=== PATIENT | male | born 1950 | race Caucasian/White ===

== ENCOUNTER 2019-11-17 09:50 | Inpatient (IN) | payer MEDICARE, OTHER ==
[~2019-11-17] VITALS: Ht 185.4 cm; Wt 86.3 kg
--- OUTSIDE RECORDS SUMMARY | 2019-11-17 09:53 | XMS REPORT ---
Author Organization Unknown Address [address] [place] [address] Phone [phone] Care Team Providers Care Supervisor Statement Clerks Name Role Phone JESÚS MANZO MD (OPHTHALMOLOGY) [phone] Allergies Code Code System Name Reaction Severity Status Onset No Known Allergies Deactivated NKDA Medications Name Status Start Date Stop Date Aspirin Low Dose 81 mg tablet,delayed re lease Take 1 tablet every day by oral route. Active Not available azithromycin 250 mg tablet TAKE 2 TABLETS (500 MG) BY ORAL ROUTE ONCE DAILY FOR 1 DAY THEN 1 TABLET (250 MG) BY ORAL ROUTE ONCE DAILY FOR 4 DAYS Active Not available azithromycin 500 mg tablet Take 1 tablet every day by oral route for 3 days. Completed 10/08/2016 azithromycin 500 mg tabs Completed 017 boostrix 5-2.5-18.5 susp Completed 017 Centrum Silver Active Not available crestor 20 mg tabs Completed 06/13/2016 D3-2000 2,000 unit capsule Take by oral route. Active Not available Depo-Medrol 80 mg/mL suspension for inje ction 1 cc injected deep IM, once, as a single dose Completed 09/10/2016 diclofenac 1 % topical gel apply 1 inch to affected area 4 times a day Active Not available diclofenac sodium 1 % gel Completed 2017 hydrocodone 10 mg-acetaminophen 325 mg t ablet 2 tablets q 8 hrs x 30 days Active Not availab le hydrocodone/acetaminophen 10-325 mg tabs Completed 10/14/2017 hydroxyzine HCl 10 mg tablet TAKE 1 TO 2 TABLETS BY MOUTH EVERY 8 HOURS NEEDED Active Not available Kenalog 40 mg/mL suspension for injectio n 1 ml injected into the Carpal ligament, using sterile technique Completed 01/03/2017 lidocaine 10 mg/mL (1 %) injection solut ion 1 ml used to infiltrate the area of the R carpal tunnel area Completed 01/03/2017 lorazepam 2 mg tablet Take 1 tablet twice a day by oral route for 30 days. Active Not available lorazepam 2 mg tabs Completed 10/14/2017 Medrol (Juan Diego) 4 mg tablets in a dose pack take as directed on the pack; do not skip any doses; take all tablets Completed 01/31/2017 metformin 500 mg tablet TAKE 2 TABLETS BY MOUTH TWICE DAILY DIRECTED Active Not available metformin hcl 500 mg tabs Completed 2016 methylprednisolone dose pack 4 mg tbpk Completed 03/01/2017 metoprolol succinate ER 50 mg tablet,ext ended release 24 hr Take 1 tablet every day by oral route for 90 days. Active Not available metoprolol succinate er 50 mg tb24 Completed 10/14/2017 naproxen 500 mg tablet TAKE 1 TABLET BY MOUTH TWICE DAILY Active Not available naproxen 500 mg tabs Completed 10/14/2017 pantoprazole 40 mg tablet,delayed releas e Take 1 tablet every day by oral route for 90 days. Active Not available pantoprazole sodium 40 mg tbec Completed 0 10/14/2017 peg-3350/nacl/na bicarbonate/kcl 420 gm solr Completed 06/19/2017 polyethylene glycol 3350 powd Completed 1 08/20/2016 promethazine hcl 25 mg tabs Completed 03/31 rosuvastatin 20 mg tablet Take 1 tablet every day by oral route at bedtime for 90 days. Completed 06/19/2017 rosuvastatin 5 mg tablet Take 1 tablet every day by oral route for 90 days. Active Not available rosuvastatin calcium 20 mg tabs Completed 03/01/2017 rosuvastatin calcium 5 mg tabs Completed 0 08/16/2017 tamsulosin 0.4 mg capsule TAKE 1 CAPSULE BY MOUTH EVERY DAY Active Not a vailable tamsulosin hcl 0.4 mg caps Completed 08/16 testosterone cypionate 200 mg/mL intramuscular oil Completed 06/19/2017 testosterone cypionate 200 mg/ml soln inject 1ml every 2 weeks Active Not available triamcinolone acetonide 0.1 % crea Completed 10/08/2016 triamcinolone acetonide 0.1 % dental pas te apple a small pea-sized amount directy to lesion on the gum Completed 11/07/2016 triamcinolone acetonide 0.1 % pste Completed 10/08/2016 triamcinolone acetonide 0.1 % topical cr eam APPLY A THIN LAYER TO THE AFFECTED AREA(S) BY TOPICAL ROUTE 2 TIMES PER DAY Completed 01/03/2017 Notes: Also takes Excipial (for bruising ) supplement twice a day Problems Name Status Onset Date Source Lactose Intolerance Active 04/08/2015 History 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 History Hypertensive Heart Disease Active 04/08/2015 Histo ry Old Myocardial Infarction Active 04/08/2015 Histor y Hip Pain Active 04/08/2015 History Low Back Pain Active 04/08/2015 History History of Placement of Stent for Coronary Artery Disease Active 04/08/2015 History Antiplatelet Agent Therapy Active 04/08/2015 Histo ry Long-term Drug Therapy Active 04/08/2015 History Clinical Finding Unknown 04/08/2015 History Long-term Current Use of Drug Therapy Active 04/08/2015 History Patient Post Percutaneous Transluminal Coronary Angioplasty Acti ve 05/09/2015 History Pure Hypercholesterolemia Active 07/06/2015 Histor y Gastroesophageal Reflux Disease without Esophagitis Active 07/06/2015 History Anxiety Disorder Active 04/13/2016 Prediabetes Active 06/13/2016 Male Hypogonadism Active 12/06/2016 Continuous Opioid Dependence Active 04/24/2017 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 04/24/2017 Lower Urinary Tract Symptoms Due to Benign Prostatic Hypertr ophy Active 04/24/2017 Asbestosis Active 10/14/2017 Procedures Date Name Performed by Hip Surgery Notes: HIP REPLACEMENT 2003 Information not available Back Surgery Notes: 1992 Information not available 05/14/2016 Electrocardiogram [facility] [address] [facility] [address] [place] [address] ([place] [address]) 04/24/2017 Electrocardiogram [facility] [address] [facility] [address] [place] [address] (Work Place) 05/22/2017 MRI, Lumbar Spine, W/o Contrast [facility] [address] [place] [address] (Work [address]) 10/14/2017 XR, Chest, 2 View [facility] [address] [place] [address] (Work Place) Notes: Repair Spinal Dura 2* to CSF Leak ; Surgery Date: 1993 Lab Results Date Name Specimen Result Interpretation Description Value Range Status Address 04/24/2017 CBC W/ Auto Diff Wbc 6.65 x10*3/L 4.2 3-9.07 x10*3/L Final [facility] Laboratory: [address] [place] Rbc 5.14 10*12/L 4.63-6.08 10*12/L Final [facility] Laboratory: [address] [place] Low Hemoglobin 12.80 g/dL 13.70-17.50 g/ dL Final [facility] [address] [facility] Hemat[facility]rit 41.1 % 40.1-51.0 % Final [facility] [address] [facility] Mcv 80.0 fL 80.0-100.0 fL Final [facility]: [address] [facility] Low Mch 24.9 pg 25.7-32.2 pg Final [facility] Laboratory: [address] [place] Low Mchc 31.1 g/dL 32.3-36.5 g/dL Final [facility] [address] [facility] High RDW-SD 49.9 fL 35.1-43.9 fL Final [facility] [address] [facility] Platelet Count 273.0 k/uL 163.0-337. 0 k/uL Final [facility] Laboratory: [address] [place] Mpv 9.7 fL 7.5-11.[address] [facility] [address] [facility] Neut% 51.7 % 34.0-67.9 % Final [facility] Laboratory: [address] [facility] Lymph% 33.7 % 21.8-53.1 % Final [facility] Laboratory: [address] [facility] Mon% 9.8 % 5.3-12.2 % Final [facility]: [address] [facility] Eos% 4.2 % 0.8-7.0 % Final [facility] [address] [facility] Baso% 0.6 % 0.2-1.2 % Final [facility] [address] [facility] Neut# 3.4 x10*3/L 1.8-5.4 x10*3/L Final [facility] Laboratory: [address] [facility], [place] Lymph# 2.2 x10*3/L 1.3-3.6 x10*3/L Final [facility] Laboratory: [address], [place] Mon# 0.7 x10*3/L 0.3-0.8 x10*3/L F inal [facility] Laboratory: [address], [place] Eos# 0.28 x10*3/L 0.04-0.54 x10*3/ L Final [facility] Laboratory: [address] [facility], [place] Baso# 0.04 x10*3/L 0.01-0.08 x10*3/ L Final [facility] [address] [facility] 04/24/2017 CMP, Serum or Plasma Alt 21 U/L 0-55 U /L Final [facility] Laboratory: [address] Ast 21 U/L 5-34 U/L Final [facility] Laboratory: [address] Bun 9.0 mg/dL 8.4-25.7 mg/dL Final [facility] Laboratory: [address] Alk Phos 69 unit/L 40-150 unit/L Fin [facility] Laboratory: [address] Glucose 93 mg/dL 70-99 mg/dL Final [facility] Laboratory: [address] Albumin 3.7 g/dL 3.5-5.0 g/dL Final [facility] Laboratory: [address] Creatinine 0.74 mg/dL 0.72-1.25 mg/d L Final [facility] Laboratory: [address] eGFR Non- >60 mL/min/1.73m2 >60 mL/min/1.73m2 Final [facility] Laboratory: [address] Total Bilirubin 0.4 mg/dL 0.2-1.2 mg /dL Final [facility] Laboratory: [address] eGFR - >60 mL/min/1 .73m2 >60 mL/min/1.73m2 [facility] Laboratory: [address] Sodium 140 mEq/L 136-145 mEq/L Final [facility] Laboratory: [address] Potassium 5.0 mEq/L 3.5-5.1 mEq/L [facility] Laboratory: [address] Chloride 103 mmol/L 98-107 mmol/L [facility] Laboratory: [address] Total Protein 7.1 g/dL 6.4-8.3 g/dL [facility] Laboratory: [address] Calcium 9.8 mg/dL 8.8-10.0 mg/dL [facility] Laboratory: [address] Co2 30.1 mmol/L 23.0-31.0 mmol/L [facility] Laboratory: [address] Anion Gap 7 calc [facility] Laboratory: [address] 04/24/2017 Lipid Panel, Serum Low Hdl 35 mg/dL 40-60 mg/dL Final [facility] Laboratory: [address] Triglyceride 68 mg/dL 0-149 mg/dL [facility] Laboratory: [address] VLDL Calc. 14 mg/dL [facility] Laboratory: [address] cholesterol/HDL Ratio 3.0 mg/dL [facility] Laboratory: [address] non-HDL Cholesterol Calc. 69 mg/dL 0 -160 mg/dL [facility] Laboratory: [address] Cholesterol 104 mg/dL 0-199 mg/dL [facility] Laboratory: [address] LDL Calc. 55 mg/dL 0-130 mg/dL Final [facility] Laboratory: [address] [place] [address], [place] 04/24/2017 T4, Total, Serum Low T4 Total 4.60 ug/d L 4.87-11.72 ug/dL Final [facility] Laboratory: [address] 04/24/2017 TSH, Serum or Plasma Tsh 0.688 uI U/mL 0.350-4.940 uIU/mL Final [facility] Laboratory: [address] 04/24/2017 PSA, Serum or Plasma PSA, Total 1.19 NG /mL <4.00 NG/mL Final [facility] Laboratory: [address] [place] [address] 04/24/2017 Testosterone, Total, Serum Testoster one, Total 580.21 NG/dL 220.91-715.81 NG/dL Final [facility] Labo ratory: [address] 04/24/2017 HbA1C (Hemoglobin a1C), Blood High A1C W/ eag 6.4 % 1.0-5.7 % Final [facility] Laboratory: [address] [place] [address] Average Blood Glucose 137 mg/dL Final [facility] Laboratory: [address] [place] [address] 03/01/2017 Testosterone, Total, Serum Testoster one, Total 447.57 NG/dL 220.91-715.81 NG/dL Final [facility] Labo ratory: [address] [place] [address] 03/01/2017 HbA1C (Hemoglobin a1C), Blood High A1C W/ eag 6.3 % 1.0-5.7 % Final [facility] Laboratory: [address] [place] [address] Average Blood Glucose 134 mg/dL Final [facility] Laboratory: [address] [place], [place] [address]y kim [address] 11/07/2016 CBC W/ Auto Diff Wbc 6.41 x10*3/L 2.9 0-10.50 x10*3/L Final [facility] Laboratory: [address] [place] [address] Rbc 4.05 10*12/L 3.61-5.21 10*12/L Final [facility] Laboratory: [address] [place] [address] Low Hemoglobin 11.30 g/dL 12.30-17.50 g/ dL Final [facility] Laboratory: [address] [place] [address] Low Hematocrit 35.6 % 37.1-51.3 % Final [facility] Laboratory: [address] [place] [address] Mcv 87.9 fL 79.4-101.6 fL Final [facility] Laboratory: [address] [place] [address] Mch 27.9 pg 26.2-34.8 pg Final [facility] Laboratory: [address] [place] Mchc 31.7 g/dL 30.2-35.6 g/dL Final [facility] Laboratory: [address] [place] RDW-SD 45.0 fL 35.8-49.8 fL Final [facility] Laboratory: [address] [place] Platelet Count 246.0 k/uL 118.8-347. 0 k/uL Final [facility] Laboratory: [address] [place] Mpv 10.0 fL 8.4-13.4 fL Final [facility] Laboratory: [address] [place] Neut% 55.5 % 39.1-76.5 % Final [facility] Laboratory: [address] [place] Lymph% 31.0 % 13.8-46.8 % Final [facility] Laboratory: [address] [place] Mon% 8.6 % 4.6-14.4 % Final [facility] Laboratory: [address] [place] Eos% 4.4 % 0.8-7.3 % Final [facility] Laboratory: [address] [place] Baso% 0.5 % 0.2-1.5 % Final [facility] Laboratory: [address] [place] Neut# 3.6 x10*3/L 0.8-7.0 x10*3/L Final [facility] Laboratory: [address] [place] Lymph# 2.0 x10*3/L 0.6-3.2 x10*3/L Final [facility] Laboratory: [address] [place] Mon# 0.6 x10*3/L 0.2-1.0 x10*3/L F [facility] Laboratory: [address], [place] Eos# 0.28 x10*3/L 0.04-0.51 x10*3/ L Final [facility] Laboratory: [address] [place] Baso# 0.03 x10*3/L 0.01-0.09 x10*3/ L Final [facility] Laboratory: [address] [place] 11/07/2016 CMP, Serum or Plasma Alt 22 U/L 0-55 U /L Final [facility] Laboratory: [address] Ast 22 U/L 5-34 U/L Final [facility] Laboratory: [address] Low Bun 8 mg/dL 8-26 mg/dL Final [facility] Laboratory: [address] Alk Phos 79 unit/L 40-150 unit/L Fin [facility] Laboratory: [address] High Glucose 104 mg/dL 70-99 mg/dL Final [facility] Laboratory: [address] Albumin 3.7 g/dL 3.5-5.0 g/dL Final [facility] Laboratory: [address] Low Creatinine 0.69 mg/dL 0.72-1.25 mg/d L Final [facility] Laboratory: [address] eGFR Non- >60 mL/min/1.73m2 >60 mL/min/1.73m2 Final [facility] Laboratory: [address] Total Bilirubin 0.2 mg/dL 0.2-1.2 mg /dL Final [facility] Laboratory: [address] [place] [address] eGFR - >60 mL/min/1 .73m2 >60 mL/min/1.73m2 Final [facility] Laboratory: [address] Sodium 138 mEq/L 136-145 mEq/L Final [facility] Laboratory: [address] Potassium 5.1 mEq/L 3.5-5.1 mEq/L [facility] Laboratory: [address] Chloride 103 mmol/L 98-107 mmol/L [facility] Laboratory: [address] Total Protein 7.0 g/dL 6.4-8.3 g/dL Final [facility] Laboratory: [address] Calcium 9.0 mg/dL 8.8-10.0 mg/dL Fin [facility] Laboratory: [address] [place] [address], [place] Co2 28.1 mmol/L 23.0-31.0 mmol/L [facility] Laboratory: [address] [place] [address], [place] Anion Gap 7 calc Final [facility] Laboratory: [address] [place] [address], [place] 11/07/2016 Lipid Panel, Serum Hdl 44 mg/dL 40-60 mg/dL Final [facility] Laboratory: [address] [place] [address], [place] High Triglyceride 163 mg/dL 0-149 mg/dL F [facility] Laboratory: [address] [address], [place] VLDL Calc. 33 mg/dL [facility] [address] [place] [address], [place] cholesterol/HDL Ratio 3 mg/dL Final [facility] Laboratory: [address] [place] [address], [place] non-HDL Cholesterol Calc. 78 mg/dL 0 -160 mg/dL Final [facility] Laboratory: [address] Cholesterol 122 mg/dL 0-199 mg/dL [facility] Laboratory: [address] [place] [address], [place] LDL Calc. 45 mg/dL 0-130 mg/dL Final [facility] Laboratory: [address] [place] [address], [place] 11/07/2016 Testosterone, Total, Serum Low Testoster one, Total 63.41 NG/dL 220.91-715.81 NG/dL Final [facility] Labo ratory: [address] [place] [address], [place] 11/07/2016 HbA1C (Hemoglobin a1C), Blood High A1C W/ eag 6.4 % 1.0-5.7 % Final [facility] Laboratory: [address] [place] [address], [place] Average Blood Glucose 137 mg/dL Final [facility] Laboratory: [address] [place] [address], [place] 05/14/2016 Lipid Panel, Serum Normal Cholesterol, Tota l 129 mg/dL 125-200 mg/dL Final [facility] L ab: [address], [place] Normal HDL Cholesterol 44 mg/dL > or = 40 m g/dL Final [facility] Lab: [address], [place] Normal Triglycerides 138 mg/dL <150 mg/dL F [facility] Lab: [address], [place] Normal LDL-cholesterol 57 mg/dL (calc) <130 mg/dL (calc) Final [facility] Lab: [address], [place] Normal Chol/hdlc Ratio 2.9 (calc) < or = 5. 0 (calc) Final [facility] Lab: [address], [place] Normal Non HDL Cholesterol 85 mg/dL (calc) Final [facility] Lab: [address], [place] 05/14/2016 CMP, Serum or Plasma High Glucose 126 mg/dL 65-99 mg/dL Final [facility] Lab: [address], [place] Normal Urea Nitrogen (BUN) 8 mg/dL 7-25 mg/ dL Final [facility] Lab: [address], [place] Low Creatinine 0.58 mg/dL 0.70-1.25 mg/d L Final [facility] Lab: [address], [place] Normal eGFR Non-afr. [place] 107 mL/ min/1.73m2 > or = 60 mL/min/1.73m2 Final [facility] L ab: [address], [place] Normal eGFR 124 mL/m in/1.73m2 > or = 60 mL/min/1.73m2 Final [facility] L ab: [address], [place] Normal BUN/creatinine Ratio 14 (calc) 6-22 (calc) Final [facility] Lab: [address], [place] Normal Sodium 137 mmol/L 135-146 mmol/L [facility] Lab: [address], [place] Normal Potassium 4.3 mmol/L 3.5-5.3 mmol/L Final [facility] Lab: [address], [place] Normal Chloride 99 mmol/L 98-110 mmol/L [facility] Lab: [address], [place] Normal Carbon Dioxide 30 mmol/L 20-31 mmol/ L Final [facility] Lab: [address], [place] Normal Calcium 9.8 mg/dL 8.6-10.3 mg/dL [facility] Lab: [address], [place] Normal Protein, Total 7.1 g/dL 6.1-8.1 g/dL Final [facility] Lab: [address], [place] Normal Albumin 4.2 g/dL 3.6-5.1 g/dL Final [facility] Lab: [address], [place] Normal Globulin 2.9 g/dL (calc) 1.9-3.7 g/d L (calc) Final [facility] Lab: [address], [place] Normal Albumin/globulin Ratio 1.4 (calc) 1. 0-2.5 (calc) Final [facility] Lab: [address], [place] Normal Bilirubin, Total 0.3 mg/dL 0.2-1.2 m g/dL Final [facility] Lab: [address] [facility], [place] Normal Alkaline Phosphatase 80 U/L 40-115 U /L Final [facility] Lab: [address] [place] [address], [place] Normal Ast 20 U/L 10-35 U/L [facility] [address] [facility], [place] Normal Alt 22 U/L 9-46 U/L Final [facility] Lab: [address], [place] 05/14/2016 CBC W/ Auto Diff Normal White Blood Cell Co unt 6.1 thousand/uL 3.8-10.8 thousand/uL [facility] L ab: [address] [facility], [place] Normal Red Blood Cell Count 4.50 mill ion/uL 4.20-5.80 million/uL Final [facility] Lab: [address], [place] Low Hemoglobin 12.3 g/dL 13.2-17.1 g/dL Final [facility] Lab: [address], [place] Low Hematocrit 38.0 % 38.5-50.0 % Final [facility] Lab: [address] [facility], [place] Normal Mcv 84.5 fL 80.0-100.0 fL Final est [facility] Lab: [address], [place] Normal Mch 27.3 pg 27.0-33.0 pg Final [facility] Lab: [address], [place] Normal Mchc 32.3 g/dL 32.0-36.0 g/dL Final [facility] Lab: [address] [place] [address], [place] Normal Rdw 14.4 % 11.0-15.0 % Final [facility] Lab: [address] [place] [address], [place] Normal Platelet Count 291 thousand/uL 140-4 00 thousand/uL Final [facility] Lab: [address] [place] [address], [place] Normal Mpv 8.1 fL 7.5-11.5 fL Final [facility] Lab: [address] [place] [address], [place] Normal Absolute Neutrophils 3623 cells/uL 1 500-7800 cells/uL Final [facility] Lab: [address] [place] [address], [place] Normal Absolute Lymphocytes 1787 cells/uL 8 50-3900 cells/uL Final [facility] Lab: [address] [place] [address], [place] Normal Absolute Monocytes 366 cells/uL 200- 950 cells/uL Final [facility] Lab: [address] [place] [address], [place] Normal Absolute Eosinophils 287 cells/uL 15 -500 cells/uL Final [facility] [facility]: [address] [place] [address], [place] Normal Absolute Basophils 37 cells/uL 0-200 cells/uL Final [facility]: [address] [place] [address], [place] Normal Neutrophils 59.4 % Final [facility]: [address] [place] [address], [place] Normal Lymphocytes 29.3 % Final [facility] Lab: [address] [place] [address], [place] Normal Monocytes 6.0 % [facility]: [address] [place] [address], [place] Normal Eosinophils 4.7 % Final [facility] Lab: [address] [place] [address], [place] Normal Basophils 0.6 % [facility] Lab: [address] [place] [address], [place] 05/14/2016 T4, Total, Serum Normal T4 (Thyroxine), Tot al 6.2 mcg/dL 4.5- 12.0 mcg/dL Final [facility] ab: [address] [place] [address], [place] 05/14/2016 TSH, Serum or Plasma Normal Tsh 0.47 mIU /L 0.40-4.50 mIU/L Final [facility] Lab: [address] [place] [address], [place] 05/14/2016 PSA, Serum or Plasma Normal PSA, Total 0.3 NG/mL < or = 4.0 NG/mL Final [facility] ab: [address] [place] [address], [place] Electrocardiogram Rate & Rhythm [facility]: [address] [facility] [address] [place] [facility]: [address] [facility] [address], [place] Interval [facility]: [address], [place] Duration Vi [facility]: [address], [place] Interval [facility]: [address], [place] Electrocardiogram Rate [employer] Rhythm [facility]: [address], [place] [facility]: [address] [facility] [address], [place] Interval [facility] [address] [facility] [address], [place] Duration [facility] [address] [facility] [address], [place] Interval [facility]: [address] [facility] [address], [place] Past Encounters 10/14/2017 Body Mass Index 25-29 - Overweight; Acute Sinusitis; Low Back Pain; Anxiety Disorder; Continuous Opioid Dependence; Long-term Drug Therapy; Itching of Skin; Asbestosis Rao Manzo MD: [address] [facility], [address], [place] [address], Ph. 09/12/2017 Hypertensive Heart Disease; Low Back Pain; Continuous Opioid Dependence; Anxiety Disorder; Old Myocardial Infarction; Patient Post Percutaneous Transluminal Coronary Angioplasty; Carpal Tunnel Syndrome Rao Manzo MD: [address] [facility], [facility] [address], Ph. 08/16/2017 Low Back Pain; Anxiety Disorder MARIO Veloz: [address] [facility], [address], [place] [address], Ph. 07/19/2017 Pain in Right Heel; Low Back Pain; Lower Urinary Tract Symptoms Due to Benign Prostatic Hypertrophy; Continuous Opioid Dependence Rao Manzo MD: [address] [facility], [address], [place] [address], Ph. 06/19/2017 Body Mass Index 25-29 - Overweight; Low Back Pain; Anxiety Disorder; Hypertensive Heart Disease; Old Myocardial Infarction; Continuous Opioid Dependence; Screening for Malignant Neoplasm of Colon Rao Manzo MD: [address] [facility], [address] [address], Ph. 05/22/2017 Lumbosacral Spondylosis with Radiculopathy; Pure Hypercholesterolemia; Low Back Pain; Anxiety Disorder; Male Hypogonadism; Body Mass Index 25-29 - Overweight Rao Manzo MD: [address] [address], Ph. 05/08/2017 Male Hypogonadism Rao Manzo MD: 23407 [facility], [address] [address], Ph. 04/24/2017 Adult Health Examination; Body Mass Index 25-29 - Overweight; Hypertensive Heart Disease; Old Myocardial Infarction; Long-term Drug Therapy; Antiplatelet Agent Therapy; History of Placement of Stent for Coronary Artery Disease; Continuous Opioid Dependence; Low Back Pain; Pure Hypercholesterolemia; Anxiety Disorder; Gastroesophageal Reflux Disease without Esophagitis; Prediabetes; Male Hypogonadism; Lower Urinary Tract Symptoms Due to Benign Prostatic Hypertrophy; Tobacco Dependence in Remission; Screening for Malignant Neoplasm of Colon; Screening for Malignant Neoplasm of Prostate; Advance Directive Discussed with Patient; Depression Screening Rao Manzo MD: [id number] [address], Ph. 04/12/2017 Testicular Hypofunction; Male Hypogonadism Philippe Ponce MD: [id number] [address], Ph. 03/28/2017 Body Mass Index 25-29 - Overweight; Low Back Pain; Testicular Hypofunction; Constipation Rao Manzo MD: [address] [facility], [address] [address], Ph. 03/15/2017 Testicular Hypofunction Philippe Ponce MD: [address] [address], Ph. 03/01/2017 Anxiety Disorder; Low Back Pain; Testicular Hypofunction; Prediabetes Rao Manzo MD: [address], [address] [address], Ph. 02/15/2017 Testicular Hypofunction Philippe Ponce MD: [address] [address], Ph. 02/06/2017 Male Hypogonadism MARIO Veloz: [id number] [address], Ph. 01/31/2017 Lumbosacral Spondylosis with Radiculopathy; Anxiety Disorder; Gastroesophageal Reflux Disease without Esophagitis; Male Hypogonadism; Pure Hypercholesterolemia; Hypertensive Heart Disease; Lower Urinary Tract Symptoms Due to Benign Prostatic Hypertrophy MARIO Veloz: [id number] [address], Ph. 01/23/2017 Male Hypogonadism ODILIA Rivas: [address] [address], Ph. 01/16/2017 Male Hypogonadism Rao Manzo MD: [address] [address], Ph. 01/09/2017 Male Hypogonadism MARIO Veloz: [address] [address], Ph. 01/03/2017 Lumbosacral Spondylosis with Radiculopathy; Anxiety Disorder; Male Hypogonadism Rao Manzo MD: [address] [address], Ph. 12/27/2016 Testicular Hypofunction MARIO Veloz: [address] [address], Ph. 12/20/2016 Testicular Hypofunction Rao Manzo MD: [id number] [address], Ph. 12/13/2016 Testicular Hypofunction MARIO Veloz: [address] [facility], [facility], [place] [address], Ph. 12/06/2016 Lumbosacral Spondylosis with Radiculopathy; Anxiety Disorder; Carpal Tunnel Syndrome; Male Hypogonadism Rao Manzo MD: [address]60 [facility], [address] [address], Ph. 11/29/2016 Long-term Drug Therapy; Hypogonadism China Mcmahan PA: 701[address] [facility], [address] [address], Ph. 11/22/2016 Long-term Drug Therapy; Hypogonadism ODILIA Rivas: [address] [address], Ph. 11/15/2016 Hypogonadism; Prediabetes; Anemia Rao Manzo MD: [address] [address], Ph. 11/07/2016 Hypertensive Heart Disease; Pure Hypercholesterolemia; Prediabetes; Lumbosacral Spondylosis with Radiculopathy; Anxiety Disorder; Gastroesophageal Reflux Disease without Esophagitis; Antiplatelet Agent Therapy; Fatigue Rao Manzo MD: 31343 [facility], [address] [address], Ph. 10/08/2016 Hypertensive Heart Disease; Anxiety Disorder; Lumbosacral Spondylosis with Radiculopathy; Opioid Dependence Rao Manzo MD: [address] [facility], [address] [address], Ph. 09/10/2016 Lumbosacral Spondylosis with Radiculopathy; Anxiety Disorder; Prediabetes; Gingivitis Rao Manzo MD: 59240 [facility], [address] [address], Ph. 08/13/2016 Hip Pain; Lumbosacral Spondylosis with Radiculopathy; Anxiety Disorder; Acute Urticaria Rao Manzo MD: 67129 [facility], [address] [address], Ph. 07/13/2016 Hip Pain; Pure Hypercholesterolemia; Anxiety Disorder; Low Back Pain; Opioid Dependence ODILIA Rivas: [address] [address], Ph. 06/13/2016 Hip Pain; Anxiety Disorder; Gastroesophageal Reflux Disease without Esophagitis; Pure Hypercholesterolemia; Opioid Dependence; Tibialis Posterior Tendinitis ODILIA Rivas: [id number] [address], Ph. 05/17/2016 Hypertensive Heart Disease; Long-term Drug Therapy; Opioid Dependence; Low Back Pain; Hip Pain Rao Manzo MD: [address] [place] [address], Ph. 05/14/2016 Adult Health Examination; Screening for Malignant Neoplasm of Prostate; Immunization; Hypertensive Heart Disease; Old Myocardial Infarction; History of Placement of Stent for Coronary Artery Disease; Depression Screening; Screening for Malignant Neoplasm of Colon; Antiplatelet Agent Therapy; Hip Pain; History of Total Hip Arthroplasty; Anxiety Disorder; Low Back Pain; Gastroesophageal Reflux Disease without Esophagitis; Pure Hypercholesterolemia; Opioid Dependence; Body Mass Index 25-29 - Overweight Rao Manzo MD: [address] [place] [address], Ph. 04/13/2016 Low Back Pain; Anxiety Disorder ODILIA Rivas: [address] [place] [phone], Ph. Social History Smoking Status Former Smoker (2 PPD) Notes: Quit 2011 Vaccine List Vaccine Type influenza, injectable, quadrivalent 04/17/2017 influenza, seasonal, injectable 03/23/2014 pneumococcal conjugate PCV 13 03/31/2016 pneumococcal polysaccharide PPV23 03/31/2015 Tdap 07/01/2016 zoster 07/01/2013 Notes: up to date per pt-10/14/2017-yesenia Plan of Care Reminders Provider Appointments None recorded. Lab None recorded. Referral None recorded. Procedures None recorded. Surgeries None recorded. Imaging None recorded. Vitals 10/14/2017 03:30PM Est Patient Height Weight BMI Blood Pressure 6 ft 0.5 in 212.4 lbs 28.4 kg/m2 123/75 mm[Hg] 09/12/2017 09:30AM Est Patient Height Weight BMI Blood Pressure 6 ft 0.5 in 217 lbs 29 kg/m2 130/84 mm[Hg] 08/16/2017 08:00AM Est Patient Height Weight BMI Blood Pressure 6 ft 0.5 in 221.6 lbs 29.6 kg/m2 120/70 mm[Hg] 07/19/2017 08:30AM Est Patient Height Weight BMI Blood Pressure 6 ft 0.5 in 217 lbs 29 kg/m2 158/90 mm[Hg] 06/19/2017 08:30AM Est Patient Height Weight BMI Blood Pressure 6 ft 0.5 in 214.8 lbs 28.7 kg/m2 122/82 mm[Hg] 05/22/2017 01:30PM Est Patient Height Weight BMI Blood Pressure 6 ft 0.5 in 216.4 lbs 28.9 kg/m2 126/88 mm[Hg] 04/24/2017 10:00AM AWV Height Weight BMI Blood Pressure 6 ft 0.5 in 213 lbs 28.5 kg/m2 (1) 153/88 mm[H g] (2) 160/84 mm[Hg] 03/28/2017 01:45PM Est Patient Height Weight BMI Blood Pressure 6 ft 3 in 214.2 lbs 26.8 kg/m2 133/74 mm[Hg] 03/01/2017 08:45AM Est Patient Height Weight BMI Blood Pressure 6 ft 3 in 216.8 lbs 27.1 kg/m2 (1) 145/85 mm[H g] (2) 142/88 mm[Hg] 02/06/2017 08:45AM Est Patient Height 6 ft 3 in 01/31/2017 08:00AM Est Patient Height Weight BMI Blood Pressure 6 ft 3 in 218.4 lbs 27.3 kg/m2 131/87 mm[Hg] 01/09/2017 09:15AM Est Patient Height 6 ft 3 in 01/03/2017 10:45AM Est Patient Height Weight BMI Blood Pressure 6 ft 3 in 218 lbs 27.2 kg/m2 134/79 mm[Hg] 12/06/2016 08:00AM Est Patient Height Weight BMI Blood Pressure 6 ft 3 in 220.8 lbs 27.6 kg/m2 138/81 mm[Hg] 11/29/2016 09:30AM Est Patient Height 6 ft 3 in 11/15/2016 10:15AM Est Patient Height Weight BMI Blood Pressure 6 ft 3 in 214.3 lbs 26.8 kg/m2 120/71 mm[Hg] 11/07/2016 08:45AM Est Patient Height Weight BMI Blood Pressure 6 ft 3 in 214.4 lbs 26.8 kg/m2 116/63 mm[Hg] 10/08/2016 09:15AM Est Patient Height Weight BMI Blood Pressure 6 ft 3 in 215.4 lbs 26.9 kg/m2 131/84 mm[Hg] 09/10/2016 09:15AM Est Patient Height Weight BMI Blood Pressure 6 ft 3 in 212.8 lbs 26.6 kg/m2 108/67 mm[Hg] 08/13/2016 08:30AM Est Patient Height Weight BMI Blood Pressure 6 ft 3 in 214.4 lbs 26.8 kg/m2 134/84 mm[Hg] 07/13/2016 07:45AM Est Patient Height Weight BMI Blood Pressure 6 ft 3 in 212.4 lbs 26.5 kg/m2 137/84 mm[Hg] 06/13/2016 08:15AM Est Patient Height Weight BMI Blood Pressure 6 ft 3 in 214.8 lbs 26.8 kg/m2 159/89 mm[Hg] 05/17/2016 08:30AM Est Patient Height Weight BMI Blood Pressure 6 ft 3 in 211.4 lbs 26.4 kg/m2 137/76 mm[Hg] 05/14/2016 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 Height Weight BMI Blood Pressure 6 ft 3 in 211 lbs 26.4 kg/m2 145/86 mm[Hg] 04/13/2016 11:15AM Est Patient Height Weight BMI Blood Pressure 6 ft 3 in 210 lbs 26.2 kg/m2 119/71 mm[Hg] 11/14/2015 Height Weight BMI Blood Pressure 6 ft 3 in 208.6 lbs 26.07 kg/m2 141/82 mm[Hg] 10/31/2015 Height Weight BMI Blood Pressure 6 ft 3 in 207.6 lbs 25.95 kg/m2 143/79 mm[Hg] 09/30/2015 Height Weight BMI Blood Pressure 6 ft 3 in 205.6 lbs 25.70 kg/m2 128/67 mm[Hg] 08/31/2015 Height Weight BMI Blood Pressure 6 ft 3 in 205.8 lbs 25.72 kg/m2 130/76 mm[Hg] 08/04/2015 Height Weight BMI Blood Pressure 6 ft 3 in 205.4 lbs 25.67 kg/m2 128/82 mm[Hg] 07/06/2015 Height Weight BMI Blood Pressure 6 ft 3 in 200 lbs 25.00 kg/m2 110/70 mm[Hg] 06/07/2015 Height Weight BMI Blood Pressure 6 ft 3 in 203 lbs 25.37 kg/m2 132/74 mm[Hg] 05/09/2015 Weight Blood Pressure 205.4 lbs 128/82 mm[Hg] 05/09/2015 Height BMI 6 ft 3 in 25.67 kg/m2 04/08/2015 Height Weight BMI Blood Pressure 6 ft 3 in 205.6 lbs 25.70 kg/m2 143/80 mm[Hg] 03/11/2015 Height Weight Blood Pressure 6 ft 3 in 210.4 lbs 128/82 mm[Hg] 03/11/2015 BMI 26.30 kg/m2 02/11/2015 Height Weight BMI Blood Pressure 6 ft 3 in 211.2 lbs 26.40 kg/m2 112/70 mm[Hg] 01/12/2015 Height Weight BMI Blood Pressure 6 ft 3 in 217.2 lbs 27.15 kg/m2 112/60 mm[Hg] 12/13/2014 Height Weight BMI Blood Pressure 6 ft 3 in 218.8 lbs 27.35 kg/m2 123/72 mm[Hg] 11/08/2014 Height Weight BMI Blood Pressure 6 ft 3 in 218.4 lbs 27.30 kg/m2 140/72 mm[Hg] 10/06/2014 Height Weight BMI Blood Pressure 6 ft 3 in 220.6 lbs 27.57 kg/m2 112/70 mm[Hg] 09/02/2014 Height Weight BMI Blood Pressure 6 ft 3 in 221.2 lbs 27.65 kg/m2 130/80 mm[Hg] 08/02/2014 Height Weight BMI Blood Pressure 6 ft 3 in 219.6 lbs 27.45 kg/m2 130/68 mm[Hg] 06/28/2014 Height Weight BMI Blood Pressure 6 ft 3 in 218.2 lbs 27.27 kg/m2 142/78 mm[Hg] 05/24/2014 Height Weight BMI Blood Pressure 6 ft 3 in 217.4 lbs 27.17 kg/m2 120/80 mm[Hg] 04/23/2014 Height Weight BMI Blood Pressure 6 ft 3 in 222.2 lbs 27.77 kg/m2 120/80 mm[Hg] 03/23/2014 Height Weight BMI Blood Pressure 6 ft 3 in 221.8 lbs 27.72 kg/m2 110/70 mm[Hg] 02/16/2014 Height Weight 6 ft 3 in 218.2 lbs 01/15/2014 Height Weight 6 ft 3 in 218.4 lbs 12/18/2013 Height Weight 6 ft 3 in 217.8 lbs 11/19/2013 Height Weight 6 ft 3 in 217.8 lbs 10/20/2013 Height Weight 6 ft 3 in 213 lbs 09/18/2013 Height Weight 6 ft 3 in 213 lbs 08/20/2013 Height Weight 6 ft 3 in 209 lbs 07/16/2013 Height Weight 6 ft 3 in 207.5 lbs 06/15/2013 Height Weight 6 ft 3 in 210.4 lbs 05/15/2013 Height Weight 6 ft 3 in 212.6 lbs 04/14/2013 Height Weight 6 ft 3 in 207.8 lbs 03/11/2013 Height Weight 6 ft 3 in 211.8 lbs 02/12/2013 Height Weight 6 ft 3 in 208 lbs 01/12/2013 Height Weight 6 ft 3 in 208 lbs 12/12/2012 Height Weight 6 ft 3 in 207 lbs 11/11/2012 Height Weight 6 ft 3 in 204.4 lbs 10/13/2012 Height Weight 6 ft 3 in 207 lbs 09/10/2012 Height Weight 6 ft 3 in 206 lbs 08/11/2012 Height Weight 6 ft 3 in 201.4 lbs 07/10/2012 Height Weight 6 ft 3 in 197.8 lbs 06/09/2012 Height Weight 6 ft 3 in 195.2 lbs 05/09/2012 Height Weight 6 ft 3 in 197.6 lbs 04/10/2012 Height Weight 6 ft 3 in 196.2 lbs 03/11/2012 Height Weight 6 ft 3 in 195.6 lbs 02/08/2012 Height Weight 6 ft 3 in 190.4 lbs 01/09/2012 Height Weight 6 ft 3 in 192.4 lbs 12/13/2011 Height Weight 6 ft 3 in 189.6 lbs 12/10/2011 Height Weight 6 ft 3 in 191.6 lbs 11/08/2011 Height Weight 6 ft 3 in 196 lbs 10/09/2011 Height Weight 6 ft 3 in 196.2 lbs 09/06/2011 Height Weight 6 ft 3 in 197.4 lbs 08/07/2011 Height Weight 6 ft 3 in 196.4 lbs 07/06/2011 Height Weight 6 ft 3 in 202.2 lbs 06/06/2011 Height Weight 6 ft 3 in 202.8 lbs 05/07/2011 Height Weight 6 ft 3 in 200.4 lbs 04/04/2011 Height Weight 6 ft 3 in 199 lbs 03/06/2011 Height Weight 6 ft 3 in 195.4 lbs 02/02/2011 Height Weight 6 ft 3 in 195.4 lbs 01/03/2011 Height Weight 6 ft 3 in 201 lbs 12/04/2010 Height Weight 6 ft 3 in 202.8 lbs 11/03/2010 Height Weight 6 ft 3 in 205.6 lbs 10/06/2010 Height Weight 6 ft 3 in 202 lbs 09/07/2010 Height Weight 6 ft 3 in 206 lbs 08/10/2010 Weight 207 lbs 07/10/2010 Height Weight 6 ft 3 in 209.2 lbs 06/09/2010 Height Weight 6 ft 3 in 212.8 lbs 05/10/2010 Height Weight 6 ft 3 in 209 lbs 04/06/2010 Height Weight 6 ft 3 in 206.8 lbs 03/07/2010 Weight 207.8 lbs 02/06/2010 Height Weight 6 ft 3 in 209.2 lbs 01/06/2010 Height Weight 6 ft 3 in 209.4 lbs 12/07/2009 Height Weight 6 ft 3 in 209.3 lbs 11/08/2009 Height Weight 6 ft 3 in 208 lbs 10/07/2009 Weight 205 lbs 09/06/2009 Weight 201 lbs 08/05/2009 Weight 198 lbs 07/08/2009 Weight 190 lbs 06/10/2009 Weight 190 lbs 05/13/2009 Weight 194 lbs 04/14/2009 Weight 193 lbs 03/18/2009 Weight 187 lbs 02/18/2009 Height Weight 6 ft 2 in 186 lbs 01/19/2009 Weight 192 lbs 12/23/2008 Weight 183 lbs 11/25/2008 Weight 189 lbs 10/25/2008 Height Weight 6 ft 1.5 in 185 lbs 09/28/2008 Height Weight 6 ft 0.25 in 186 lbs 08/04/2008 Weight 186 lbs 07/19/2008 Weight 191 lbs 06/21/2008 Weight 191.8 lbs 05/31/2008 Weight 191.3 lbs 03/31/2008 Weight 195.3 lbs 03/10/2008 Weight 196.1 lbs 02/18/2008 Weight 197.4 lbs 01/27/2008 Weight 190.1 lbs 01/06/2008 Weight 192.6 lbs 12/16/2007 Weight 198.3 lbs 11/19/2007 Weight 201.9 lbs 10/06/2007 Weight 199.8 lbs 08/22/2007 Weight 198.5 lbs 07/15/2007 Weight 196.9 lbs 06/17/2007 Height Weight 6 ft 1 in 196.7 lbs 05/19/2007 Weight 191.6 lbs 04/21/2007 Weight 194.7 lbs 03/18/2007 Weight 194 lbs 03/04/2007 Weight 190.4 lbs 02/18/2007 Weight 192.1 lbs 01/16/2007 Weight 198 lbs 12/19/2006 Weight 195 lbs 11/22/2006 Weight 199.7 lbs 10/24/2006 Weight 200.4 lbs 09/24/2006 Height Weight 6 ft 1 in 200.5 lbs 08/29/2006 Weight 204 lbs 08/01/2006 Height Weight 6 ft 1 in 201.3 lbs 07/05/2006 Height Weight 6 ft 1 in 199.7 lbs 06/11/2006 Height Weight 6 ft 1.5 in 201.3 lbs 05/10/2006 Height Weight 6 ft 1 in 198.7 lbs 04/15/2006 Height Weight 6 ft 1.5 in 198.1 lbs 03/26/2006 Height Weight 6 ft 1 in 195 lbs 02/11/2006 Height Weight 6 ft 1 in 198 lbs 01/10/2006 Height Weight 6 ft 1 in 199 lbs 11/19/2005 Height Weight 6 ft 1 in 202 lbs 09/24/2005 Height Weight 6 ft 1 in 200 lbs 08/30/2005 Height Weight 6 ft 1 in 202 lbs 08/02/2005 Height Weight 6 ft 1 in 203 lbs 07/03/2005 Height Weight 6 ft 1 in 205 lbs 06/06/2005 Height Weight 6 ft 1 in 205 lbs 05/10/2005 Height Weight 6 ft 1 in 208 lbs 04/10/2005 Weight 203 lbs 03/12/2005 Height Weight 6 ft 1 in 203 lbs 02/12/2005 Height Weight 6 ft 1 in 206 lbs 02/01/2005 Height Weight 6 ft 2 in 201 lbs 01/16/2005 Height Weight 6 ft 1 in 201 lbs 01/10/2005 Height Weight 6 ft 1 in 205 lbs 12/29/2004 Height Weight 6 ft 1 in 202 lbs 12/15/2004 Height Weight 6 ft 1 in 208 lbs 11/24/2004 Height Weight 6 ft 1 in 206 lbs 10/30/2004 Height Weight 6 ft 1 in 212 lbs 09/29/2004 Height Weight 6 ft 1 in 209 lbs 09/06/2004 Height Weight 6 ft 1 in 210 lbs 07/28/2004 Weight 210 lbs 06/15/2004 Weight 216 lbs 05/19/2004 Weight 218 lbs 04/28/2004 Weight 215 lbs 04/06/2004 Weight 218 lbs 03/07/2004 Weight 218 lbs
--- OUTSIDE RECORDS SUMMARY | 2019-11-17 09:53 | XMS REPORT ---
Author Author [facility] t Organization [facility] Address [address] [place] [address] Phone Unavailable Care Team Providers Care Checkout Supervisor Name Role Phone Unavailable Unavailable Problems Condition Name Condition Details Condition Category Status Onset Date Resolution Date Last Treatment Date Treating Clinician Comments Source Asbestosis Asbestosis Problem Active 2017-10-14 00:00:00 [facility] Continuous opioid dependence Continuous Opioid Dependence Problem Active 2017-04-24 00:00:00 [facility] Tobacco dependence in remission Tobacco Dependence in Remission Pro blem Active 2017-04-24 00:00:00 [facility] Lower urinary tract symptoms due to benign prostatic h ypertrophy Lower Urinary Tract Symptoms Due to Benign Prostatic Hypertrophy Problem Active 2017-04-24 00:00:00 [facility] Male hypogonadism Male Hypogonadism Problem Active 2016-12-06 00:00:00 [facility] Prediabetes Prediabetes Problem Active 2016-06-13 00:00:00 [facility] Anxiety disorder Anxiety Disorder Problem Active 2016-04-13 00:00:00 [facility] Pure hypercholesterolemia Pure Hypercholesterolemia Problem Ac tive 2015-07-06 00:00:00 [facility] Gastroesophageal reflux disease without esophagitis Ga stroesophageal Reflux Disease without Esophagitis Problem Active 2015-07-06 00:00:00 [facility] Patient post percutaneous transluminal coronary angiop lasty Patient Post Percutaneous Transluminal Coronary Angioplasty Problem Active 2015-05-09 00:00:00 [facility] Lactose intolerance Lactose Intolerance Problem Active 2015-04-08 00:00 :00 [facility] Tear film insufficiency Tear Film Insufficiency Problem Active 2015-04-08 00:00:00 [facility] Hypertensive heart disease Hypertensive Heart Disease Problem Active 2015-04-08 00:00:00 [facility] Old myocardial infarction Old Myocardial Infarction Problem Ac tive 2015-04-08 00:00:00 [facility] Hip pain Hip Pain Problem Active 2015-04-08 00:00:00 [facility] Low back pain Low Back Pain Problem Active 2015-04-08 00:00:00 [facility] History of placement of stent for coronary artery dise ase History of Placement of Stent for Coronary Artery Disease Problem Active 2015-04-08 00:00:00 [facility] Antiplatelet agent therapy Antiplatelet Agent Therapy Problem Active 2015-04-08 00:00:00 [facility] Long-term drug therapy Long-term Drug Therapy Problem Active 2015-04-08 00:00:00 [facility] Long-term current use of drug therapy Long-term Current Use of Drug Therapy Problem Active 2015-04-08 00:00:00 [facility] Clinical finding Clinical Finding Problem Active 2015-04-08 00 :00:00 2016-05-14 00:00:00 [facility] roel Allergies, Adverse Reactions, Alerts This patient has no known allergies or adverse reactions. Social History Smoking Status Start Date Stop Date Source Former Smoker [facility] mary annetila Medications Ordered Medication Name Filled Medication Name Start Date Stop Da te Current Medication? Ordering Clinician Indication Dosage Frequency Signature (SIG) Comments Components Source Aspirin Low Dose 81 mg tablet,delayed re lease Take 1 tablet every day by oral route. Aspirin Low Dose 81 mg tablet,delayed re lease Take 1 tablet every day by oral route. No 1 Q1D Aspirin Low Dose 81 mg tablet,delayed release Take 1 tablet every day [facility] mg tablet TAKE 2 TABLET S (500 MG) BY ORAL ROUTE ONCE DAILY FOR 1 DAY THEN 1 TABLET (250 MG) BY ORAL ROUTE ONCE DAILY FOR 4 DAYS azithromycin 250 mg tablet TAKE 2 TABLETS (500 MG) BY ORAL ROUTE ONCE DAILY FOR 1 DAY THEN 1 TABLET (250 MG) BY ORAL ROUTE ONCE DAILY FOR 4 DAYS No azithromycin 250 mg tablet TAKE 2 TABLETS (500 MG) BY ORAL ROUTE ONCE DAILY FOR 1 DAY THEN 1 TABLET (250 MG) BY ORAL ROUTE ONCE DAILY FOR 4 DAYS [facility] Centrum Silver Centrum Silver No Centrum Si lver [facility] D3-2000 2,000 unit capsule Take by oral route. D3-2000 2,000 unit capsule Take by oral route. No D3-2000 2,000 un it capsule Take by oral route. [facility] diclofenac 1 % topical gel apply 1 inch to affected ar ea 4 times a day diclofenac 1 % topical gel apply 1 inch to affected area 4 times a day No diclofenac 1 % topical gel apply 1 inch to affe cted area 4 times a day [facility] hydrocodone 10 mg-acetaminophen 325 mg tablet 2 tablet s q 8 hrs x 30 days hydrocodone 10 mg-acetaminophen 325 mg tablet 2 tablets q 8 hrs x 30 days No hydrocodone 10 mg-acetaminophen 325 mg tablet 2 tablets q 8 hrs x 30 days [facility] hydroxyzine HCl 10 mg tablet TAKE 1 TO 2 TABLETS BY MOUTH EVERY 8 HOURS NEEDED hydroxyzine HCl 10 mg tablet TAKE 1 TO 2 TABLETS BY MOUTH EVERY 8 HOURS NEEDED No hydroxyzine HC l 10 mg tablet TAKE 1 TO 2 TABLETS BY MOUTH EVERY 8 HOURS NEEDED [facility] lorazepam 2 mg tablet Take 1 tablet twice a day by ora l route for 30 days. lorazepam 2 mg tablet Take 1 tablet twice a day by oral route for 30 days. No 1 BID lorazepam 2 mg tablet Take 1 tablet twice a day by oral route for 30 days. [facility] metformin 500 mg tablet TAKE 2 TABLETS BY MOUTH TWICE DAILY DIRECTED metformin 500 mg tablet TAKE 2 TABLETS BY MOUTH TWICE DAILY DIRECTED No metformin 500 mg tablet TAKE 2 TABLE TS BY MOUTH TWICE DAILY DIRECTED [facility] metoprolol succinate ER 50 mg tablet,ext ended release 24 hr Take 1 tablet every day by oral route for 90 days. metoprolol succinate ER 50 mg tablet,ext ended release 24 hr Take 1 tablet every day by oral route for 90 days. No 1 Q1D metoprolol succinate ER 50 mg tablet,ext ended release 24 hr Take 1 tablet every day by oral route for 90 days. [facility] 500 [facility] tablet TAKE 1 TABLET BY MOUTH TWICE DA ANN MARIE naproxen 500 mg tablet TAKE 1 TABLET BY MOUTH TWICE DAILY No naproxen 500 mg tablet TAKE 1 TABLET BY MOUTH TWICE DAILY [facility] pantoprazole 40 mg tablet,delayed releas e Take 1 tablet every day by oral route for 90 days. pantoprazole 40 mg tablet,delayed releas e Take 1 tablet every day by oral route for 90 days. No 1 Q1D pantoprazole 40 mg tablet,delayed release Take 1 tablet every day by oral route for 90 days. [facility] rosuvastatin 5 mg tablet Take 1 tablet every day by or al route for 90 days. rosuvastatin 5 mg tablet Take 1 tablet every day by oral route for 90 days. No 1 Q1D rosuvastatin 5 mg tablet Take 1 tablet every day by oral route for 90 days. [facility] tamsulosin 0.4 mg capsule TAKE 1 CAPSULE BY MOUTH EVER Y DAY tamsulosin 0.4 mg capsule TAKE 1 CAPSULE BY MOUTH EVERY DAY No tamsulosin 0.4 mg capsule TAKE 1 CAPSULE BY MOUTH EVERY DAY [facility] testosterone cypionate 200 mg/ml soln inject 1ml every 2 weeks testosterone cypionate 200 mg/ml soln inject 1ml every 2 weeks No testosterone cypionate 200 mg/ml soln inject 1ml every 2 weeks [facility] diclofenac sodium 1 % gel diclofenac sodium 1 % gel 00:00:00 No diclofenac sodium 1 % gel [facility] hydrocodone/acetaminophen 10-325 mg tabs hydrocodone/a cetaminophen 10-325 mg tabs 2017-10-14 00:00:00 No hydr ocodone/acetaminophen 10-325 mg tabs [facility] lorazepam 2 mg tabs lorazepam 2 mg tabs 2017-10-14 00:00:00 No [facility]azepam 2 mg [facility] met[facility]ol succinate er 50 mg tb24 metoprolol succinate er 50 mg tb24 2017-10-14 00:00:00 No metoprolol succinate er 50 mg tb24 [facility] naproxen 500 mg tabs naproxen 500 mg tabs 2017-10-14 00:00:00 No naproxen 500 mg tabs [facility] tila pantoprazole sodium 40 mg tbec pantoprazole sodium 40 mg tbe 2017-10-14 00:00:00 No pantoprazole sodium 40 mg tbec [facility] rosuvastatin calcium 5 mg tabs rosuvastatin calcium 5 mg tabs 2017-08-16 00:00:00 No rosuvastatin calcium 5 mg tabs [facility] tamsulosin hcl 0.4 mg caps tamsulosin hcl 0.4 mg caps 2017 00:00:00 No tamsulosin hcl 0.4 mg caps [facility] metformin hcl 500 mg tabs metformin hcl 500 mg tabs 00:00:00 No metformin hcl 500 mg tabs [facility] peg-3350/nacl/na bicarbonate/kcl 420 gm solr peg-3350/ nacl/na bicarbonate/kcl 420 gm solr 2017-06-19 00:00:00 No peg-3350/nacl/na bicarbonate/kcl [facility] ice polyethylene glycol 3350 powd polyethylene glycol 3350 powd 2017-06-19 00:00:00 No polyethylene glycol 3350 powd [facility] rosuvastatin 20 mg tablet Take 1 tablet every day by oral route at bedtime for 90 days. rosuvastatin 20 mg tablet Take 1 tablet every day by oral route at bedtime for 90 days. 2017-06-19 00:00:00 No 1 Q1D rosuvastatin 20 mg tablet Take 1 tablet every day by oral route at bedtime for 90 days. [facility] testosterone cypionate 200 mg/mL intramuscular oil farzana tosterone cypionate 200 mg/mL intramuscular oil 2017-06-19 00:00:00 No testosterone cypionate 200 mg/mL intramuscular oil [facility] methylprednisolone dose pack 4 mg tbpk methylprednisolone dose p ack 4 mg tbpk 2017-03-01 00:00:00 No methylprednisolone d ose pack 4 mg tbpk [facility] rosuvastatin calcium 20 mg tabs rosuvastatin calcium 20 mg tabs 2017-03-01 00:00:00 No rosuvastatin calcium 20 mg tabs [facility] Medrol (Juan Diego) 4 mg tablets in a dose pack take as directed on the pack; do not skip any doses; take all tablets Medrol (Juan Diego) 4 mg tablets in a dose pack take as directed on the pack; do not skip any doses; take all tablets 2017-01-31 00:00:00 No Medrol (Juan Diego) 4 mg tablets in a dose pack take as directed on the pack; do not skip any doses; take all tablets [facility] Kenalog 40 mg/mL suspension for injectio n 1 ml injected into the Carpal ligament, using sterile technique Kenalog 40 mg/mL suspension for injectio n 1 ml injected into the Carpal ligament, using sterile technique 2017-01-03 00:00:00 No Kenalog 40 mg/ mL suspension for injection 1 ml injected into the Carpal ligament, using sterile technique [facility] lidocaine 10 mg/mL (1 %) injection solut ion 1 ml used to infiltrate the area of the R carpal tunnel area lidocaine 10 mg/mL (1 %) injection solut ion 1 ml used to infiltrate the area of the R carpal tunnel area 2017-01-03 00:00:0 0 No lidocaine 10 mg/mL (1 %) inj ection solution 1 ml used to infiltrate the area of the R carpal tunnel area [facility] triamcinolone acetonide 0.1 % topical cr eam APPLY A THIN LAYER TO THE AFFECTED AREA(S) BY TOPICAL ROUTE 2 TIMES PER DAY triamcinolone acetonide 0.1 % topical cream APPLY A THIN LAYER TO THE AFFECTED AREA(S) BY TOPICAL ROUTE 2 TIMES PER DAY 2017-01-03 00:00:00 No tria mcinolone acetonide 0.1 % topical cream APPLY A THIN LAYER TO THE AFFECTED AREA(S) BY TOPICAL ROUTE 2 TIMES PER DAY [facility] boostrix 5-2.5-18.5 susp boostrix 5-2.5-18.5 susp 2016-11-15 00: 00:00 No boostrix 5-2.5-18.5 susp [facility] triamcinolone acetonide 0.1 % dental pas te apple a small pea-sized amount directy to lesion on the gum triamcinolone acetonide 0.1 % dental pas te apple a small pea-sized amount directy to lesion on the gum 2016-11-07 00:0 0:00 No triamcinolone aceton melva 0.1 % dental paste apple a small pea-sized amount directy to lesion on the gum [facility] azithromycin 500 mg tablet Take 1 tablet every day by oral route for 3 days. azithromycin 500 mg tablet Take 1 tablet every day by oral route for 3 days. 2016-10-08 00:00:00 No 1 Q1D azith romycin 500 mg tablet Take 1 tablet every day by oral route for 3 days. [facility] azithromycin 500 mg tabs azithromycin 500 mg tabs 2016-10-08 00: 00:00 No azithromycin 500 mg tabs [facility] triamcinolone acetonide 0.1 % crea triamcinolone acetonide 0.1 % crea 2016-10-08 00:00:00 No triamcinolone aceton melva 0.1 % crea [facility] triamcinolone acetonide 0.1 % pste triamcinolone acetonide 0.1 % pste 2016-10-08 00:00:00 No triamcinolone aceton melva 0.1 % [facility] Depo-Medrol 80 mg/mL suspension for inje ction 1 cc injected deep IM, once, as a single dose Depo-Medrol 80 mg/mL suspension for inje ction 1 cc injected deep IM, once, as a single dose 2016-09-10 00:00:00 No Depo-Medrol 80 mg/mL suspension for injection 1 cc injected deep IM, once, as a single dose [facility] crestor 20 mg tabs crestor 20 mg tabs 2016-06-13 00:00:00 No crestor 20 mg tabs [facility] promethazine hcl 25 mg tabs promethazine hcl 25 mg tabs 2016-04-13 00:00:00 No promethazine hcl 25 mg tabs [facility] Immunizations Ordered Immunization Name Filled Immunization Name Date Status Comments Source influenza, injectable, quadrivalent influenza, injectable, q uadrivalent 2017-04-17 00:00:00 [facility] T[facility]ap Tdap 2016-07-01 00:00:00 Completed [facility] pneumococcal conjugate PCV 13 pneumococcal conjugate PCV 13 2015 00:00:00 Completed [facility] pneumococcal polysaccharide PPV23 pneumococcal polysaccharid e PPV23 2015-03-31 00:00:00 [facility] influenza, seasonal, injectable influenza, seasonal, injecta ble 2014-03-23 00:00:00 [facility] zoster zoster 2013-07-01 00:00:00 Completed [facility] Vital Signs Vital Name Observation Time Observation Value Comments Source BP Diastolic 2017-10-14 00:00:00 75 mm[Hg] [facility] Height 2017-10-14 00:00:00 72.5 [in_i] [facility] BMI (Body Mass Index) 2017-10-14 00:00:00 28.4 kg/m2 [facility] BP Systolic 2017-10-14 00:00:00 123 mm[Hg] [facility] Body Weight 2017-10-14 00:00:00 212.4 [lb_av] [facility] BP Diastolic 2017-09-12 00:00:00 84 mm[Hg] [facility] Height 2017-09-12 00:00:00 72.5 [in_i] [facility] BMI (Body Mass Index) 2017-09-12 00:00:00 29 kg/m2 [facility] BP Systolic 2017-09-12 00:00:00 130 mm[Hg] [facility] Body Weight 2017-09-12 00:00:00 217 [lb_av] [facility] BP Diastolic 2017-08-16 00:00:00 70 mm[Hg] [facility] Height 2017-08-16 00:00:00 72.5 [in_i] [facility] BMI (Body Mass Index) 2017-08-16 00:00:00 29.6 kg/m2 [facility] BP Systolic 2017-08-16 00:00:00 120 mm[Hg] [facility] Body Weight 2017-08-16 00:00:00 221.6 [lb_av] [facility] BP Diastolic 2017-07-19 00:00:00 90 mm[Hg] [facility] Height 2017-07-19 00:00:00 72.5 [in_i] [facility] BMI (Body Mass Index) 2017-07-19 00:00:00 29 kg/m2 [facility] BP Systolic 2017-07-19 00:00:00 158 mm[Hg] [facility] Body Weight 2017-07-19 00:00:00 217 [lb_av] [facility] BP Diastolic 2017-06-19 00:00:00 82 mm[Hg] [facility] Height 2017-06-19 00:00:00 72.5 [in_i] [facility] BMI (Body Mass Index) 2017-06-19 00:00:00 28.7 kg/m2 [facility] BP Systolic 2017-06-19 00:00:00 122 mm[Hg] [facility] Body Weight 2017-06-19 00:00:00 214.8 [lb_av] [facility] BP Diastolic 2017-05-22 00:00:00 88 mm[Hg] [facility] Height 2017-05-22 00:00:00 72.5 [in_i] [facility] BMI (Body Mass Index) 2017-05-22 00:00:00 28.9 kg/m2 [facility] BP Systolic 2017-05-22 00:00:00 126 mm[Hg] [facility] Body Weight 2017-05-22 00:00:00 216.4 [lb_av] [facility] BP Diastolic 2017-04-24 00:00:00 88 mm[Hg] [facility] Height 2017-04-24 00:00:00 72.5 [in_i] [facility] BMI (Body Mass Index) 2017-04-24 00:00:00 28.5 kg/m2 [facility] BP Systolic 2017-04-24 00:00:00 153 mm[Hg] [facility] Body Weight 2017-04-24 00:00:00 213 [lb_av] [facility] BP Diastolic 2017-03-28 00:00:00 74 mm[Hg] [facility] Height 2017-03-28 00:00:00 75 [in_i] [facility] BMI (Body Mass Index) 2017-03-28 00:00:00 26.8 kg/m2 [facility] BP Systolic 2017-03-28 00:00:00 133 mm[Hg] [facility] Body Weight 2017-03-28 00:00:00 214.2 [lb_av] [facility] BP Diastolic 2017-03-01 00:00:00 85 mm[Hg] [facility] Height 2017-03-01 00:00:00 75 [in_i] [facility] BMI (Body Mass Index) 2017-03-01 00:00:00 27.1 kg/m2 [facility] BP Systolic 2017-03-01 00:00:00 145 mm[Hg] [facility] Body Weight 2017-03-01 00:00:00 216.8 [lb_av] [facility] Height 2017-02-06 00:00:00 75 [in_i] [facility] BP Diastolic 2017-01-31 00:00:00 87 mm[Hg] [facility] Height 2017-01-31 00:00:00 75 [in_i] [facility] BMI (Body Mass Index) 2017-01-31 00:00:00 27.3 kg/m2 [facility] BP Systolic 2017-01-31 00:00:00 131 mm[Hg] [facility] Body Weight 2017-01-31 00:00:00 218.4 [lb_av] [facility] Height 2017-01-09 00:00:00 75 [in_i] [facility] BP Diastolic 2017-01-03 00:00:00 79 mm[Hg] [facility] Height 2017-01-03 00:00:00 75 [in_i] [facility] BMI (Body Mass Index) 2017-01-03 00:00:00 27.2 kg/m2 [facility] BP Systolic 2017-01-03 00:00:00 134 mm[Hg] [facility] Body Weight 2017-01-03 00:00:00 218 [lb_av] [facility] BP Diastolic 2016-12-06 00:00:00 81 mm[Hg] [facility] Height 2016-12-06 00:00:00 75 [in_i] [facility] BMI (Body Mass Index) 2016-12-06 00:00:00 27.6 kg/m2 [facility] BP Systolic 2016-12-06 00:00:00 138 mm[Hg] [facility] Body Weight 2016-12-06 00:00:00 220.8 [lb_av] [facility] Height 2016-11-29 00:00:00 75 [in_i] [facility] BP Diastolic 2016-11-15 00:00:00 71 mm[Hg] [facility] Height 2016-11-15 00:00:00 75 [in_i] [facility] BMI (Body Mass Index) 2016-11-15 00:00:00 26.8 kg/m2 [facility] BP Systolic 2016-11-15 00:00:00 120 mm[Hg] [facility] Body Weight 2016-11-15 00:00:00 214.3 [lb_av] [facility] BP Diastolic 2016-11-07 00:00:00 63 mm[Hg] [facility] Height 2016-11-07 00:00:00 75 [in_i] [facility] BMI (Body Mass Index) 2016-11-07 00:00:00 26.8 kg/m2 [facility] BP Systolic 2016-11-07 00:00:00 116 mm[Hg] [facility] Body Weight 2016-11-07 00:00:00 214.4 [lb_av] [facility] BP Diastolic 2016-10-08 00:00:00 84 mm[Hg] [facility] Height 2016-10-08 00:00:00 75 [in_i] [facility] BMI (Body Mass Index) 2016-10-08 00:00:00 26.9 kg/m2 [facility] BP Systolic 2016-10-08 00:00:00 131 mm[Hg] [facility] Body Weight 2016-10-08 00:00:00 215.4 [lb_av] [facility] BP Diastolic 2016-09-10 00:00:00 67 mm[Hg] [facility] Height 2016-09-10 00:00:00 75 [in_i] [facility] BMI (Body Mass Index) 2016-09-10 00:00:00 26.6 kg/m2 [facility] BP Systolic 2016-09-10 00:00:00 108 mm[Hg] [facility] Body Weight 2016-09-10 00:00:00 212.8 [lb_av] [facility] BP Diastolic 2016-08-13 00:00:00 84 mm[Hg] [facility] Height 2016-08-13 00:00:00 75 [in_i] [facility] BMI (Body Mass Index) 2016-08-13 00:00:00 26.8 kg/m2 [facility] BP Systolic 2016-08-13 00:00:00 134 mm[Hg] [facility] Body Weight 2016-08-13 00:00:00 214.4 [lb_av] [facility] BP Diastolic 2016-07-13 00:00:00 84 mm[Hg] [facility] Height 2016-07-13 00:00:00 75 [in_i] [facility] BMI (Body Mass Index) 2016-07-13 00:00:00 26.5 kg/m2 [facility] BP Systolic 2016-07-13 00:00:00 137 mm[Hg] [facility] Body Weight 2016-07-13 00:00:00 212.4 [lb_av] [facility] BP Diastolic 2016-06-13 00:00:00 89 mm[Hg] [facility] Height 2016-06-13 00:00:00 75 [in_i] [facility] BMI (Body Mass Index) 2016-06-13 00:00:00 26.8 kg/m2 [facility] BP Systolic 2016-06-13 00:00:00 159 mm[Hg] [facility] Body Weight 2016-06-13 00:00:00 214.8 [lb_av] [facility] BP Diastolic 2016-05-17 00:00:00 76 mm[Hg] [facility] Height 2016-05-17 00:00:00 75 [in_i] [facility] BMI (Body Mass Index) 2016-05-17 00:00:00 26.4 kg/m2 [facility] BP Systolic 2016-05-17 00:00:00 137 mm[Hg] [facility] Body Weight 2016-05-17 00:00:00 211.4 [lb_av] [facility] BP Diastolic 2016-05-14 00:00:00 86 mm[Hg] [facility] Height 2016-05-14 00:00:00 75 [in_i] [facility] BMI (Body Mass Index) 2016-05-14 00:00:00 26.4 kg/m2 [facility] BP Systolic 2016-05-14 00:00:00 145 mm[Hg] [facility] Body Weight 2016-05-14 00:00:00 211 [lb_av] [facility] BP Diastolic 2016-04-13 00:00:00 71 mm[Hg] [facility] Height 2016-04-13 00:00:00 75 [in_i] [facility] BMI (Body Mass Index) 2016-04-13 00:00:00 26.2 kg/m2 [facility] BP Systolic 2016-04-13 00:00:00 119 mm[Hg] [facility] Body Weight 2016-04-13 00:00:00 210 [lb_av] [facility] BP Diastolic 2015-11-14 00:00:00 82 mm[Hg] [facility] Height 2015-11-14 00:00:00 75 [in_i] [facility] BMI (Body Mass Index) 2015-11-14 00:00:00 26.07 kg/m2 [facility] BP Systolic 2015-11-14 00:00:00 141 mm[Hg] [facility] Body Weight 2015-11-14 00:00:00 208.6 [lb_av] [facility] BP Diastolic 2015-10-31 00:00:00 79 mm[Hg] [facility] Height 2015-10-31 00:00:00 75 [in_i] [facility] BMI (Body Mass Index) 2015-10-31 00:00:00 25.95 kg/m2 [facility] BP Systolic 2015-10-31 00:00:00 143 mm[Hg] [facility] Body Weight 2015-10-31 00:00:00 207.6 [lb_av] [facility] BP Diastolic 2015-09-30 00:00:00 67 mm[Hg] [facility] Height 2015-09-30 00:00:00 75 [in_i] [facility] BMI (Body Mass Index) 2015-09-30 00:00:00 25.70 kg/m2 [facility] BP Systolic 2015-09-30 00:00:00 128 mm[Hg] [facility] Body Weight 2015-09-30 00:00:00 205.6 [lb_av] [facility] BP Diastolic 2015-08-31 00:00:00 76 mm[Hg] [facility] Height 2015-08-31 00:00:00 75 [in_i] [facility] BMI (Body Mass Index) 2015-08-31 00:00:00 25.72 kg/m2 [facility] BP Systolic 2015-08-31 00:00:00 130 mm[Hg] [facility] Body Weight 2015-08-31 00:00:00 205.8 [lb_av] [facility] BP Diastolic 2015-08-04 00:00:00 82 mm[Hg] [facility] Height 2015-08-04 00:00:00 75 [in_i] [facility] BMI (Body Mass Index) 2015-08-04 00:00:00 25.67 kg/m2 [facility] BP Systolic 2015-08-04 00:00:00 128 mm[Hg] [facility] Body Weight 2015-08-04 00:00:00 205.4 [lb_av] [facility] BP Diastolic 2015-07-06 00:00:00 70 mm[Hg] [facility] Height 2015-07-06 00:00:00 75 [in_i] [facility] BMI (Body Mass Index) 2015-07-06 00:00:00 25.00 kg/m2 [facility] BP Systolic 2015-07-06 00:00:00 110 mm[Hg] [facility] Body Weight 2015-07-06 00:00:00 200 [lb_av] [facility] [facility] BP Diastolic 2015-06-07 00:00:00 74 mm[Hg] [facility] Height 2015-06-07 00:00:00 75 [in_i] [facility] BMI (Body Mass Index) 2015-06-07 00:00:00 25.37 kg/m2 [facility] BP Systolic 2015-06-07 00:00:00 132 mm[Hg] [facility] Body Weight 2015-06-07 00:00:00 203 [lb_av] [facility] Height 2015-05-09 00:00:00 75 [in_i] [facility] BMI (Body Mass Index) 2015-05-09 00:00:00 25.67 kg/m2 [facility] BP Diastolic 2015-05-09 00:00:00 82 mm[Hg] [facility] BP Systolic 2015-05-09 00:00:00 128 mm[Hg] [facility] Body Weight 2015-05-09 00:00:00 205.4 [lb_av] [facility] BP Diastolic 2015-04-08 00:00:00 80 mm[Hg] [facility] Height 2015-04-08 00:00:00 75 [in_i] [facility] BMI (Body Mass Index) 2015-04-08 00:00:00 25.70 kg/m2 [facility] BP Systolic 2015-04-08 00:00:00 143 mm[Hg] [facility] Body Weight 2015-04-08 00:00:00 205.6 [lb_av] [facility] BP Diastolic 2015-03-11 00:00:00 82 mm[Hg] [facility] Height 2015-03-11 00:00:00 75 [in_i] [facility] BP Systolic 2015-03-11 00:00:00 128 mm[Hg] [facility] Body Weight 2015-03-11 00:00:00 210.4 [lb_av] [facility] BMI (Body Mass Index) 2015-03-11 00:00:00 26.30 kg/m2 [facility] BP Diastolic 2015-02-11 00:00:00 70 mm[Hg] [facility] Height 2015-02-11 00:00:00 75 [in_i] [facility] BMI (Body Mass Index) 2015-02-11 00:00:00 26.40 kg/m2 [facility] BP Systolic 2015-02-11 00:00:00 112 mm[Hg] [facility] Body Weight 2015-02-11 00:00:00 211.2 [lb_av] [facility] BP Diastolic 2015-01-12 00:00:00 60 mm[Hg] [facility] Height 2015-01-12 00:00:00 75 [in_i] [facility] BMI (Body Mass Index) 2015-01-12 00:00:00 27.15 kg/m2 [facility] BP Systolic 2015-01-12 00:00:00 112 mm[Hg] [facility] Body Weight 2015-01-12 00:00:00 217.2 [lb_av] [facility] BP Diastolic 2014-12-13 00:00:00 72 mm[Hg] [facility] Height 2014-12-13 00:00:00 75 [in_i] [facility] BMI (Body Mass Index) 2014-12-13 00:00:00 27.35 kg/m2 [facility] BP Systolic 2014-12-13 00:00:00 123 mm[Hg] [facility] Body Weight 2014-12-13 00:00:00 218.8 [lb_av] [facility] BP Diastolic 2014-11-08 00:00:00 72 mm[Hg] [facility] Height 2014-11-08 00:00:00 75 [in_i] [facility] BMI (Body Mass Index) 2014-11-08 00:00:00 27.30 kg/m2 [facility] BP Systolic 2014-11-08 00:00:00 140 mm[Hg] [facility] Body Weight 2014-11-08 00:00:00 218.4 [lb_av] [facility] BP Diastolic 2014-10-06 00:00:00 70 mm[Hg] [facility] Height 2014-10-06 00:00:00 75 [in_i] [facility] BMI (Body Mass Index) 2014-10-06 00:00:00 27.57 kg/m2 [facility] BP Systolic 2014-10-06 00:00:00 112 mm[Hg] [facility] Body Weight 2014-10-06 00:00:00 220.6 [lb_av] [facility] BP Diastolic 2014-09-02 00:00:00 80 mm[Hg] [facility] Height 2014-09-02 00:00:00 75 [in_i] [facility] BMI (Body Mass Index) 2014-09-02 00:00:00 27.65 kg/m2 [facility] BP Systolic 2014-09-02 00:00:00 130 mm[Hg] [facility] Body Weight 2014-09-02 00:00:00 221.2 [lb_av] [facility] BP Diastolic 2014-08-02 00:00:00 68 mm[Hg] [facility] Height 2014-08-02 00:00:00 75 [in_i] [facility] BMI (Body Mass Index) 2014-08-02 00:00:00 27.45 kg/m2 [facility] BP Systolic 2014-08-02 00:00:00 130 mm[Hg] [facility] Body Weight 2014-08-02 00:00:00 219.6 [lb_av] [facility] BP Diastolic 2014-06-28 00:00:00 78 mm[Hg] [facility] Height 2014-06-28 00:00:00 75 [in_i] [facility] BMI (Body Mass Index) 2014-06-28 00:00:00 27.27 kg/m2 [facility] BP Systolic 2014-06-28 00:00:00 142 mm[Hg] [facility] Body Weight 2014-06-28 00:00:00 218.2 [lb_av] [facility] BP Diastolic 2014-05-24 00:00:00 80 mm[Hg] [facility] Height 2014-05-24 00:00:00 75 [in_i] [facility] BMI (Body Mass Index) 2014-05-24 00:00:00 27.17 kg/m2 [facility] BP Systolic 2014-05-24 00:00:00 120 mm[Hg] [facility] Body Weight 2014-05-24 00:00:00 217.4 [lb_av] [facility] BP Diastolic 2014-04-23 00:00:00 80 mm[Hg] [facility] Height 2014-04-23 00:00:00 75 [in_i] [facility] BMI (Body Mass Index) 2014-04-23 00:00:00 27.77 kg/m2 [facility] BP Systolic 2014-04-23 00:00:00 120 mm[Hg] [facility] Body Weight 2014-04-23 00:00:00 222.2 [lb_av] [facility] BP Diastolic 2014-03-23 00:00:00 70 mm[Hg] [facility] Height 2014-03-23 00:00:00 75 [in_i] [facility] BMI (Body Mass Index) 2014-03-23 00:00:00 27.72 kg/m2 [facility] BP Systolic 2014-03-23 00:00:00 110 mm[Hg] [facility] Body Weight 2014-03-23 00:00:00 221.8 [lb_av] [facility] Height 2014-02-16 00:00:00 75 [in_i] [facility] Body Weight 2014-02-16 00:00:00 218.2 [lb_av] [facility] Height 2014-01-15 00:00:00 75 [in_i] [facility] Body Weight 2014-01-15 00:00:00 218.4 [lb_av] [facility] Height 2013-12-18 00:00:00 75 [in_i] [facility] Body Weight 2013-12-18 00:00:00 217.8 [lb_av] [facility] Height 2013-11-19 00:00:00 75 [in_i] [facility] Body Weight 2013-11-19 00:00:00 217.8 [lb_av] [facility] Height 2013-10-20 00:00:00 75 [in_i] [facility] Body Weight 2013-10-20 00:00:00 213 [lb_av] [facility] Height 2013-09-18 00:00:00 75 [in_i] [facility] Body Weight 2013-09-18 00:00:00 213 [lb_av] [facility] Height 2013-08-20 00:00:00 75 [in_i] [facility] Body Weight 2013-08-20 00:00:00 209 [lb_av] [facility] Height 2013-07-16 00:00:00 75 [in_i] [facility] Body Weight 2013-07-16 00:00:00 207.5 [lb_av] [facility] Height 2013-06-15 00:00:00 75 [in_i] [facility] Body Weight 2013-06-15 00:00:00 210.4 [lb_av] [facility] Height 2013-05-15 00:00:00 75 [in_i] [facility] Body Weight 2013-05-15 00:00:00 212.6 [lb_av] [facility] Height 2013-04-14 00:00:00 75 [in_i] [facility] Body Weight 2013-04-14 00:00:00 207.8 [lb_av] [facility] Height 2013-03-11 00:00:00 75 [in_i] [facility] Body Weight 2013-03-11 00:00:00 211.8 [lb_av] [facility] Height 2013-02-12 00:00:00 75 [in_i] [facility] Body Weight 2013-02-12 00:00:00 208 [lb_av] [facility] Height 2013-01-12 00:00:00 75 [in_i] [facility] Body Weight 2013-01-12 00:00:00 208 [lb_av] [facility] Height 2012-12-12 00:00:00 75 [in_i] [facility] Body Weight 2012-12-12 00:00:00 207 [lb_av] [facility] Height 2012-11-11 00:00:00 75 [in_i] [facility] Body Weight 2012-11-11 00:00:00 204.4 [lb_av] [facility] Height 2012-10-13 00:00:00 75 [in_i] [facility] Body Weight 2012-10-13 00:00:00 207 [lb_av] [facility] Height 2012-09-10 00:00:00 75 [in_i] [facility] Body Weight 2012-09-10 00:00:00 206 [lb_av] [facility] Height 2012-08-11 00:00:00 75 [in_i] [facility] Body Weight 2012-08-11 00:00:00 201.4 [lb_av] [facility] Height 2012-07-10 00:00:00 75 [in_i] [facility] Body Weight 2012-07-10 00:00:00 197.8 [lb_av] [facility] Height 2012-06-09 00:00:00 75 [in_i] [facility] Body Weight 2012-06-09 00:00:00 195.2 [lb_av] [facility] Height 2012-05-09 00:00:00 75 [in_i] [facility] Body Weight 2012-05-09 00:00:00 197.6 [lb_av] [facility] Height 2012-04-10 00:00:00 75 [in_i] [facility] Body Weight 2012-04-10 00:00:00 196.2 [lb_av] [facility] Height 2012-03-11 00:00:00 75 [in_i] [facility] Body Weight 2012-03-11 00:00:00 195.6 [lb_av] [facility] Height 2012-02-08 00:00:00 75 [in_i] [facility] Body Weight 2012-02-08 00:00:00 190.4 [lb_av] [facility] Height 2012-01-09 00:00:00 75 [in_i] [facility] Body Weight 2012-01-09 00:00:00 192.4 [lb_av] [facility] Height 2011-12-13 00:00:00 75 [in_i] [facility] Body Weight 2011-12-13 00:00:00 189.6 [lb_av] [facility] Height 2011-12-10 00:00:00 75 [in_i] [facility] Body Weight 2011-12-10 00:00:00 191.6 [lb_av] [facility] Height 2011-11-08 00:00:00 75 [in_i] [facility] Body Weight 2011-11-08 00:00:00 196 [lb_av] [facility] Height 2011-10-09 00:00:00 75 [in_i] [facility] Body Weight 2011-10-09 00:00:00 196.2 [lb_av] [facility] Height 2011-09-06 00:00:00 75 [in_i] [facility] Body Weight 2011-09-06 00:00:00 197.4 [lb_av] [facility] Height 2011-08-07 00:00:00 75 [in_i] [facility] Body Weight 2011-08-07 00:00:00 196.4 [lb_av] [facility] Height 2011-07-06 00:00:00 75 [in_i] [facility] Body Weight 2011-07-06 00:00:00 202.2 [lb_av] [facility] Height 2011-06-06 00:00:00 75 [in_i] [facility] Body Weight 2011-06-06 00:00:00 202.8 [lb_av] [facility] Height 2011-05-07 00:00:00 75 [in_i] [facility] Body Weight 2011-05-07 00:00:00 200.4 [lb_av] [facility] Height 2011-04-04 00:00:00 75 [in_i] [facility] Body Weight 2011-04-04 00:00:00 199 [lb_av] [facility] Height 2011-03-06 00:00:00 75 [in_i] [facility] Body Weight 2011-03-06 00:00:00 195.4 [lb_av] [facility] Height 2011-02-02 00:00:00 75 [in_i] [facility] Body Weight 2011-02-02 00:00:00 195.4 [lb_av] [facility] Height 2011-01-03 00:00:00 75 [in_i] [facility] Body Weight 2011-01-03 00:00:00 201 [lb_av] [facility] Height 2010-12-04 00:00:00 75 [in_i] [facility] Body Weight 2010-12-04 00:00:00 202.8 [lb_av] [facility] Height 2010-11-03 00:00:00 75 [in_i] [facility] Body Weight 2010-11-03 00:00:00 205.6 [lb_av] [facility] Height 2010-10-06 00:00:00 75 [in_i] [facility] Body Weight 2010-10-06 00:00:00 202 [lb_av] [facility] Height 2010-09-07 00:00:00 75 [in_i] [facility] Body Weight 2010-09-07 00:00:00 206 [lb_av] [facility] Body Weight 2010-08-10 00:00:00 207 [lb_av] [facility] Height 2010-07-10 00:00:00 75 [in_i] [facility] Body Weight 2010-07-10 00:00:00 209.2 [lb_av] [facility] Height 2010-06-09 00:00:00 75 [in_i] [facility] Body Weight 2010-06-09 00:00:00 212.8 [lb_av] [facility] Height 2010-05-10 00:00:00 75 [in_i] [facility] Body Weight 2010-05-10 00:00:00 209 [lb_av] [facility] Height 2010-04-06 00:00:00 75 [in_i] [facility] Body Weight 2010-04-06 00:00:00 206.8 [lb_av] [facility] Body Weight 2010-03-07 00:00:00 207.8 [lb_av] [facility] Height 2010-02-06 00:00:00 75 [in_i] [facility] Body Weight 2010-02-06 00:00:00 209.2 [lb_av] [facility] Height 2010-01-06 00:00:00 75 [in_i] [facility] Body Weight 2010-01-06 00:00:00 209.4 [lb_av] [facility] Height 2009-12-07 00:00:00 75 [in_i] [facility] Body Weight 2009-12-07 00:00:00 209.3 [lb_av] [facility] Height 2009-11-08 00:00:00 75 [in_i] [facility] Body Weight 2009-11-08 00:00:00 208 [lb_av] [facility] Body Weight 2009-10-07 00:00:00 205 [lb_av] [facility] Body Weight 2009-09-06 00:00:00 201 [lb_av] [facility] Body Weight 2009-08-05 00:00:00 198 [lb_av] [facility] Body Weight 2009-07-08 00:00:00 190 [lb_av] [facility] Body Weight 2009-06-10 00:00:00 190 [lb_av] [facility] Body Weight 2009-05-13 00:00:00 194 [lb_av] [facility] Body Weight 2009-04-14 00:00:00 193 [lb_av] [facility] Body Weight 2009-03-18 00:00:00 187 [lb_av] [facility] Height 2009-02-18 00:00:00 74 [in_i] [facility] Body Weight 2009-02-18 00:00:00 186 [lb_av] [facility] Body Weight 2009-01-19 00:00:00 192 [lb_av] [facility] Body Weight 2008-12-23 00:00:00 183 [lb_av] [facility] Body Weight 2008-11-25 00:00:00 189 [lb_av] [facility] Height 2008-10-25 00:00:00 73.5 [in_i] [facility] Body Weight 2008-10-25 00:00:00 185 [lb_av] [facility] Height 2008-09-28 00:00:00 72.25 [in_i] [facility] Body Weight 2008-09-28 00:00:00 186 [lb_av] [facility] Body Weight 2008-08-04 00:00:00 186 [lb_av] [facility] Body Weight 2008-07-19 00:00:00 191 [lb_av] [facility] Body Weight 2008-06-21 00:00:00 191.8 [lb_av] [facility] Body Weight 2008-05-31 00:00:00 191.3 [lb_av] [facility] Body Weight 2008-03-31 00:00:00 195.3 [lb_av] [facility] Body Weight 2008-03-10 00:00:00 196.1 [lb_av] [facility] Body Weight 2008-02-18 00:00:00 197.4 [lb_av] [facility] Body Weight 2008-01-27 00:00:00 190.1 [lb_av] [facility] Body Weight 2008-01-06 00:00:00 192.6 [lb_av] [facility] Body Weight 2007-12-16 00:00:00 198.3 [lb_av] [facility] Body Weight 2007-11-19 00:00:00 201.9 [lb_av] [facility] Body Weight 2007-10-06 00:00:00 199.8 [lb_av] [facility] Body Weight 2007-08-22 00:00:00 198.5 [lb_av] [facility] Body Weight 2007-07-15 00:00:00 196.9 [lb_av] [facility] Height 2007-06-17 00:00:00 73 [in_i] [facility] Body Weight 2007-06-17 00:00:00 196.7 [lb_av] [facility] Body Weight 2007-05-19 00:00:00 191.6 [lb_av] [facility] Body Weight 2007-04-21 00:00:00 194.7 [lb_av] [facility] Body Weight 2007-03-18 00:00:00 194 [lb_av] [facility] Body Weight 2007-03-04 00:00:00 190.4 [lb_av] [facility] Body Weight 2007-02-18 00:00:00 192.1 [lb_av] [facility] Body Weight 2007-01-16 00:00:00 198 [lb_av] [facility] Body Weight 2006-12-19 00:00:00 195 [lb_av] [facility] Body Weight 2006-11-22 00:00:00 199.7 [lb_av] [facility] Body Weight 2006-10-24 00:00:00 200.4 [lb_av] [facility] Height 2006-09-24 00:00:00 73 [in_i] [facility] Body Weight 2006-09-24 00:00:00 200.5 [lb_av] [facility] Body Weight 2006-08-29 00:00:00 204 [lb_av] [facility] Height 2006-08-01 00:00:00 73 [in_i] [facility] Body Weight 2006-08-01 00:00:00 201.3 [lb_av] [facility] Height 2006-07-05 00:00:00 73 [in_i] [facility] Body Weight 2006-07-05 00:00:00 199.7 [lb_av] [facility] Height 2006-06-11 00:00:00 73.5 [in_i] [facility] Body Weight 2006-06-11 00:00:00 201.3 [lb_av] [facility] Height 2006-05-10 00:00:00 73 [in_i] [facility] Body Weight 2006-05-10 00:00:00 198.7 [lb_av] [facility] Height 2006-04-15 00:00:00 73.5 [in_i] [facility] Body Weight 2006-04-15 00:00:00 198.1 [lb_av] [facility] Height 2006-03-26 00:00:00 73 [in_i] [facility] Body Weight 2006-03-26 00:00:00 195 [lb_av] [facility] Height 2006-02-11 00:00:00 73 [in_i] [facility] Body Weight 2006-02-11 00:00:00 198 [lb_av] [facility] Height 2006-01-10 00:00:00 73 [in_i] [facility] Body Weight 2006-01-10 00:00:00 199 [lb_av] [facility] Height 2005-11-19 00:00:00 73 [in_i] [facility] Body Weight 2005-11-19 00:00:00 202 [lb_av] [facility] Height 2005-09-24 00:00:00 73 [in_i] [facility] Body Weight 2005-09-24 00:00:00 200 [lb_av] [facility] Height 2005-08-30 00:00:00 73 [in_i] [facility] Body Weight 2005-08-30 00:00:00 202 [lb_av] [facility] Height 2005-08-02 00:00:00 73 [in_i] [facility] Body Weight 2005-08-02 00:00:00 203 [lb_av] [facility] Height 2005-07-03 00:00:00 73 [in_i] [facility] Body Weight 2005-07-03 00:00:00 205 [lb_av] [facility] Height 2005-06-06 00:00:00 73 [in_i] [facility] Body Weight 2005-06-06 00:00:00 205 [lb_av] [facility] Height 2005-05-10 00:00:00 73 [in_i] [facility] Body Weight 2005-05-10 00:00:00 208 [lb_av] [facility] Body Weight 2005-04-10 00:00:00 203 [lb_av] [facility] Height 2005-03-12 00:00:00 73 [in_i] [facility] Body Weight 2005-03-12 00:00:00 203 [lb_av] [facility] Height 2005-02-12 00:00:00 73 [in_i] [facility] Body Weight 2005-02-12 00:00:00 206 [lb_av] [facility] Height 2005-02-01 00:00:00 74 [in_i] [facility] Body Weight 2005-02-01 00:00:00 201 [lb_av] [facility] Height 2005-01-16 00:00:00 73 [in_i] [facility] Body Weight 2005-01-16 00:00:00 201 [lb_av] [facility] Height 2005-01-10 00:00:00 73 [in_i] [facility] Body Weight 2005-01-10 00:00:00 205 [lb_av] [facility] Height 2004-12-29 00:00:00 73 [in_i] [facility] Body Weight 2004-12-29 00:00:00 202 [lb_av] [facility] Height 2004-12-15 00:00:00 73 [in_i] [facility] Body Weight 2004-12-15 00:00:00 208 [lb_av] [facility] Height 2004-11-24 00:00:00 73 [in_i] [facility] Body Weight 2004-11-24 00:00:00 206 [lb_av] [facility] Height 2004-10-30 00:00:00 73 [in_i] [facility] Body Weight 2004-10-30 00:00:00 212 [lb_av] [facility] Height 2004-09-29 00:00:00 73 [in_i] [facility] Body Weight 2004-09-29 00:00:00 209 [lb_av] [facility] Height 2004-09-06 00:00:00 73 [in_i] [facility] Body Weight 2004-09-06 00:00:00 210 [lb_av] [facility] Body Weight 2004-07-28 00:00:00 210 [lb_av] [facility] Body Weight 2004-06-15 00:00:00 216 [lb_av] [facility] Body Weight 2004-05-19 00:00:00 218 [lb_av] [facility] Body Weight 2004-04-28 00:00:00 215 [lb_av] [facility] Body Weight 2004-04-06 00:00:00 218 [lb_av] [facility] Body Weight 2004-03-07 00:00:00 218 [lb_av] [facility] Procedures Procedure Date / Time Performed Performing Clinician [facility] tara [id number] RADIOLOGIC EXAMINATION, CHEST 2017-10-14 00:00:00 [facility] MRI, lumbar spine, w/o contrast 2017-05-22 00:00:00 [facility] electrocardiogram 2017-04-24 00:00:00 [facility] Practice electrocardiogram 2016-05-14 00:00:00 [facility] Encounters Start Date/Time End Date/Time Encounter Type Admission Type Attendi [facility] Care Department Encounter ID Source 2017-10-14 00:00:00 2017-10-14 00:00:00 Rao Manzo MD: [id number] [address], Ph. [facility] [id number] [facility] 2017-09-12 00:00:00 2017-09-12 00:00:00 Rao Manzo MD: [id number] [address] [id number] 2017-08-16 00:00:00 2017-08-16 00:00:00 PATRICK VelozP: [id number] [address], Ph. VFP [facility] [id number] [facility] 2017-07-19 00:00:00 2017-07-19 00:00:00 Rao Manzo MD: [id number] [address], Ph. VFP [facility] [id number] [facility] 2017-06-19 00:00:00 2017-06-19 00:00:00 Rao Mazno MD: [id number] [address], Ph. VFP [facility] [id number] [facility] 2017-05-22 00:00:00 2017-05-22 00:00:00 Rao Manzo MD: [id number] [employer] [address] [address], [facility] [id number] [facility] 2017-05-08 00:00:00 2017-05-08 00:00:00 Rao Manzo MD: [id number] [address], Ph. VFP [place] - [facility] [id number] 2017-04-24 00:00:00 2017-04-24 00:00:00 Rao Manzo MD: [id number] [address], Ph. VFP [place] [facility] [id number] [facility] 2017-04-12 00:00:00 2017-04-12 00:00:00 Philippe soto MD: [id number] [place] [address], Ph. VFP [facility] - [facility] [id number] [facility] 2017-03-28 00:00:00 2017-03-28 00:00:00 Rao Manzo MD: [id number] [address], Ph. VFP [facility] - [facility] [id number] [facility] t[facility] 2017-03-15 00:00:00 2017-03-15 00:00:00 Philippe soto MD: [id number] [address], Ph. VFP [place] [facility] [id number] [facility] 2017-03-01 00:00:00 2017-03-01 00:00:00 Rao Manzo MD: [id number] [address], Ph. VFP [place] [facility] [id number] [facility] 2017-02-15 00:00:00 2017-02-15 00:00:00 Philippe soto MD: [id number], [address], [place] [address], Ph. VFP [facility] [id number] [facility] 2017-02-06 00:00:00 2017-02-06 00:00:00 Jennifer Sommers, [employer]OCIATE: [id number] [address], Ph. VFP [facility] - [facility] [id number] [facility] t[facility] 2017-01-31 00:00:00 2017-01-31 00:00:00 Jennifer Matthieu [employer]CH[employer]ISING EXECUTION ASSOCIATE: [id number] [address], Ph. VFP [facility] - [facility] [id number] [facility] t[facility] 2017-01-23 00:00:00 2017-01-23 00:00:00 ODILIA Rivas : [id number] [address], Ph. VFP [facility] Practice - [facility] [id number] [facility] Practice 2017-01-16 00:00:00 2017-01-16 00:00:00 Rao Manzo MD: [id number] [address], Ph. 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 VFP [facility] - [facility] [id number] [facility] 2017-01-03 00:00:00 2017-01-03 00:00:00 Rao Manzo MD: [id number], [address], [place] [address], Ph. VFP [place] - [facility] [id number] [facility] 2016-12-27 00:00:00 2016-12-27 00:00:00 Jennifer Sommers, MERCHANDISING EXECUTION ASSOCIATE: [id number] [facility] [facility] [address], Ph. VFP [place] - [facility] [id number] [facility] 2016-12-20 00:00:00 2016-12-20 00:00:00 Rao Manzo MD: [id number] [facility] [address] [place] [phone], Ph. VFP [place] - [facility] - [facility] [id number] [facility] 2016-12-13 00:00:00 2016-12-13 00:00:00 Jennifer Sommers, MERCHANDISING EXECUTION ASSOCIATE: [id number] [facility], [address] [place] [phone], Ph. VFP [place] - [facility] - [facility] [id number] [facility] 2016-12-06 00:00:00 2016-12-06 00:00:00 Rao Manzo MD: [id number] [facility] [address] [place] [address], Ph. VFP [place] - [facility] - [facility] [id number] [facility] 2016-11-29 00:00:00 2016-11-29 00:00:00 ODILIA Rivas : [id number] [facility] [address], Ph. VFP [place] - [facility] - [facility] [id number] [facility] 2016-11-22 00:00:00 2016-11-22 00:00:00 ODILIA Rivas : [id number] [facility], [address] [address], Ph. VFP [place] - [facility] [id number] [facility] 2016-11-15 00:00:00 2016-11-15 00:00:00 Rao Manzo MD: [id number], [address], [place] [address], Ph. VFP [facility] [id number] [facility] 2016-11-07 00:00:00 2016-11-07 00:00:00 Rao Manzo MD: [id number], [address] [address], Ph. VFP [facility] [id number] [facility] 2016-10-08 00:00:00 2016-10-08 00:00:00 Rao Manzo MD: [id number], [address] [address], Ph. VFP [facility] - [facility] [id number] [facility] 2016-09-10 00:00:00 2016-09-10 00:00:00 Rao Manzo MD: [id number], [address] [address], Ph. VFP [facility] - [facility] [id number] [facility] 2016-08-13 00:00:00 2016-08-13 00:00:00 Rao Manzo MD: [address], [address] [place] [phone], Ph. VFP [facility] - [facility] [id number] [facility] 2016-07-13 00:00:00 2016-07-13 00:00:00 ODILIA Rivas : [address], [address] [address], Ph. VFP [facility] [id number] [facility] Practice 2016-06-13 00:00:00 2016-06-13 00:00:00 ODILIA Rivas : [address], [address] [address], Ph. [facility] [id number] [facility] 2016-05-17 00:00:00 2016-05-17 00:00:00 Rao Manzo MD: [id number] [facility], [address] [address], Ph. [facility] [id number] [facility] 2016-05-14 00:00:00 2016-05-14 00:00:00 Rao Manzo MD: [id number] [facility], [facility] [address] [address], Ph. [facility] [id number] [facility] 2016-04-13 00:00:00 2016-04-13 00:00:00 ODILIA Rivas : [address] [facility], [facility] [address] [address], Ph. [facility] [id number] [facility] Results Test Description Test Time Test Comments Results Result Comments Source Comprehensive metabolic 2000 panel - Serum or Plasma 2017-03 13:38:00 Test Item ALT (test code = ALT) 21 U/L 0-55 AST (test code = AST) 21 U/L 5-34 BUN (test code = BUN) 9.0 mg/dL 8.4-25.7 alk phos (test code = alk phos) 69 unit/L 40-150 glucose (test code = glucose) 93 mg/dL 70-99 albumin (test code = albumin) 3.7 g/dL 3.5-5.0 creatinine (test code = creatinine) 0.74 mg/dL 0.72-1.25 eGFR non- (test code = eGFR non-) > 60 >60 total bilirubin (test code = total bilirubin) 0.4 mg/dL 0.2-1.2 eGFR - (test code = eGFR - ) >60 >60 sodium (test code = sodium) 140 mEq/L 136-145 potassium (test code = potassium) 5.0 mEq/L 3.5-5.1 chloride (test code = chloride) 103 mmol/L 98-107 total protein (test code = total protein) 7.1 g/dL 6.4-8.3 calcium (test code = calcium) 9.8 mg/dL 8.8-10.0 CO2 (test code = CO2) 30.1 mmol/L 23.0-31.0 anion gap (test code = anion gap) 7 calc [facility] - Serum or [id number] 13:38:00* Test Item Value Reference Range Interpretation Comments HDL (test code = HDL) 35 mg/dL 40-60 L triglyceride (test code = triglyceride) 68 mg/dL 0-149 VLDL calc. (test code = VLDL calc.) 14 mg/dL cholesterol/HDL ratio (test code = cholesterol/HDL ratio) 3.0 mg/dL non-HDL cholesterol calc. (test code = non-HDL cholesterol c alc.) 69 mg/dL 0-160 cholesterol (test code = cholesterol) 104 mg/dL 0-199 LDL calc. (test code = LDL calc.) 55 mg/dL 0-130 [facility] [Mass/volume] in Serum or [id number] 13:38:00* Test Item Value Reference Range Interpretation Comments T4 total (test code = T4 total) 4.60 ug/dL 4.87-11.72 L [facility] [Units/volume] in Serum or [id number] 13:38:00* Test Item Value Reference Range Interpretation Comments TSH (test code = TSH) 0.688 uIU/mL 0.350-4.940 [facility] Ag [Mass/volume] in Serum or Plasma 2017-04-25 13:38:00* Test Item Value Reference Range Interpretation Comments PSA, total (test code = PSA, total) 1.19 NG/mL <4.00 [facility] [Mass/volume] in Serum or [id number] 13:38:00* Test Item Value Reference Range Interpretation Comments testosterone, total (test code = testosterone, total) 580.21 NG/dL 220.91-715.81 [facility]CBC W Auto Differential panel - [id number] 16:33:00 * Test Item Value Reference Range Interpretation Comments WBC (test code = WBC) 6.65 x10*3/?L 4.23-9.07 RBC (test code = RBC) 5.14 10*12/L 4.63-6.08 hemoglobin (test code = hemoglobin) 12.80 g/dL 13.70-17.50 L hematocrit (test code = hematocrit) 41.1 % 40.1-51.0 MCV (test code = MCV) 80.0 fL 80.0-100.0 MCH (test code = MCH) 24.9 pg 25.7-32.2 L MCHC (test code = MCHC) 31.1 g/dL 32.3-36.5 L RDW-SD (test code = RDW-SD) 49.9 fL 35.1-43.9 H platelet count (test code = platelet count) 273.0 k/uL 163.0-337. 0 MPV (test code = MPV) 9.7 fL 7.5-11.5 neut% (test code = neut%) 51.7 % 34.0-67.9 lymph% (test code = lymph%) 33.7 % 21.8-53.1 mon% (test code = mon%) 9.8 % 5.3-12.2 eos% (test code = eos%) 4.2 % 0.8-7.0 baso% (test code = baso%) 0.6 % 0.2-1.2 neut# (test code = neut#) 3.4 x10*3/?L 1.8-5.4 lymph# (test code = lymph#) 2.2 x10*3/?L 1.3-3.6 mon# (test code = mon#) 0.7 x10*3/?L 0.3-0.8 eos# (test code = eos#) 0.28 x10*3/?L 0.04-0.54 baso# (test code = baso#) 0.04 x10*3/?L 0.01-0.08 [facility]em[facility] A1c/Hemoglobin.total in [id number] 16:14:00* Test Item Value Reference Range Interpretation Comments A1C w/EAG (test code = A1C w/EAG) 6.4 % 1.0-5.7 H average blood glucose (test code = average blood glucose) 137 mg/dL [facility]Testosterone [Mass/volume] in Serum or [id number] 15:56:00* Test Item Value Reference Range Interpretation Comments testosterone, total (test code = testosterone, total) 447.57 NG/dL 220.91-715.81 [facility] HospitalHemoglobin A1c/Hemoglobin.total in [id number] 15:39:00* Test Item Value Reference Range Interpretation Comments A1C w/EAG (test code = A1C w/EAG) 6.3 % 1.0-5.7 H average blood glucose (test code = average blood glucose) 134 mg/dL [facility]Hem[facility] A1c/Hemoglobin.total in [id number] 17:19:00* Test Item Value Reference Range Interpretation Comments A1C w/EAG (test code = A1C w/EAG) 6.4 % 1.0-5.7 H average blood glucose (test code = average blood glucose) 137 mg/dL [facility]CBC W Auto Differential panel - [id number] 16:50:00 * Test Item Value Reference Range Interpretation Comments WBC (test code = WBC) 6.41 x10*3/?L 2.90-10.50 RBC (test code = RBC) 4.05 10*12/L 3.61-5.21 hemoglobin (test code = hemoglobin) 11.30 g/dL 12.30-17.50 L hematocrit (test code = hematocrit) 35.6 % 37.1-51.3 L MCV (test code = MCV) 87.9 fL 79.4-101.6 MCH (test code = MCH) 27.9 pg 26.2-34.8 MCHC (test code = MCHC) 31.7 g/dL 30.2-35.6 RDW-SD (test code = RDW-SD) 45.0 fL 35.8-49.8 platelet count (test code = platelet count) 246.0 k/uL 118.8-347. 0 MPV (test code = MPV) 10.0 fL 8.4-13.4 neut% (test code = neut%) 55.5 % 39.1-76.5 lymph% (test code = lymph%) 31.0 % 13.8-46.8 mon% (test code = mon%) 8.6 % 4.6-14.4 eos% (test code = eos%) 4.4 % 0.8-7.3 baso% (test code = baso%) 0.5 % 0.2-1.5 neut# (test code = neut#) 3.6 x10*3/?L 0.8-7.0 lymph# (test code = lymph#) 2.0 x10*3/?L 0.6-3.2 mon# (test code = mon#) 0.6 x10*3/?L 0.2-1.0 eos# (test code = eos#) 0.28 x10*3/?L 0.04-0.51 baso# (test code = baso#) 0.03 x10*3/?L 0.01-0.09 [facility]Com[facility] 2000 panel - Serum or Plasma 2016-11-07 16:44:00* Test Item Value Reference Range Interpretation Comments ALT (test code = ALT) 22 U/L 0-55 AST (test code = AST) 22 U/L 5-34 BUN (test code = BUN) 8 mg/dL 8-26 L alk phos (test code = alk phos) 79 unit/L 40-150 glucose (test code = glucose) 104 mg/dL 70-99 H albumin (test code = albumin) 3.7 g/dL 3.5-5.0 creatinine (test code = creatinine) 0.69 mg/dL 0.72-1.25 L eGFR non- (test code = eGFR non-) > 60 >60 total bilirubin (test code = total bilirubin) 0.2 mg/dL 0.2-1.2 eGFR - (test code = eGFR - ) >60 >60 sodium (test code = sodium) 138 mEq/L 136-145 potassium (test code = potassium) 5.1 mEq/L 3.5-5.1 chloride (test code = chloride) 103 mmol/L 98-107 total protein (test code = total protein) 7.0 g/dL 6.4-8.3 calcium (test code = calcium) 9.0 mg/dL 8.8-10.0 CO2 (test code = CO2) 28.1 mmol/L 23.0-31.0 anion gap (test code = anion gap) 7 calc [facility] 1995 panel - Serum or [id number] 16:44:00* Test Item Value Reference Range Interpretation Comments HDL (test code = HDL) 44 mg/dL 40-60 triglyceride (test code = triglyceride) 163 mg/dL 0-149 H VLDL calc. (test code = VLDL calc.) 33 mg/dL cholesterol/HDL ratio (test code = cholesterol/HDL ratio) 3 mg/dL non-HDL cholesterol calc. (test code = non-HDL cholesterol c alc.) 78 mg/dL 0-160 cholesterol (test code = cholesterol) 122 mg/dL 0-199 LDL calc. (test code = LDL calc.) 45 mg/dL 0-130 [facility]Testosterone [Mass/volume] in Serum or [id number] 16:44:00* Test Item Value Reference Range Interpretation Comments testosterone, total (test code = testosterone, total) 63.41 NG/d L 220.91-715.81 L [facility] 1995 panel - Serum or [id number] 00:00:00* Test Item Value Reference Range Interpretation Comments Cholesterol [Mass/volume] in Serum or Plasma (test code = 20 93-3) 129 mg/dL 125-200 Cholesterol in HDL [Mass/volume] in Serum or Plasma (t est code = 2085-9) 44 mg/dL > or = 40 Triglyceride [Mass/volume] in Serum or Plasma (test code = 2 571-8) 138 mg/dL <150 Cholesterol in LDL [Mass/volume] in Seru m or Plasma by calculation (test code = 18481-3) 57 mg/dL (calc) <130 Cholesterol.total/Cholesterol.in HDL [Ma ss ratio] in Serum or Plasma (test code = 9830-1) 2.9 (calc) < or = 5.0 Cholesterol non HDL [Mass/volume] in Serum or Plasma ( test code = 02721-2) 85 mg/dL (calc) [facility] 1999 panel - Serum or Plasma 2016-05-15 00:00:00* Test Item Value Reference Range Interpretation Comments Glucose [Mass/volume] in Serum or Plasma (test code = 2345-7) 126 m g/dL 65-99 H Urea nitrogen [Mass/volume] in Serum or Plasma (test code = 3094-0) 8 mg/dL 7-25 Creatinine [Mass/volume] in Serum or Plasma (test code = 216 0-0) 0.58 mg/dL 0.70-1.25 L Glomerular filtration rate/1.73 sq M.pre dicted by Creatinine-based formula (MDRD) (test code = 49417-0) 107 mL/min/1.73m2 > or = 60 Glomerular filtration rate/1.73 sq M pre dicted among blacks by Creatinine-based formula (MDRD) (test code = 31923-6) 124 mL/min/1.73m2 > or = 60 Urea nitrogen/Creatinine [Mass Ratio] in Serum or Plas ma (test code = 3097-3) 14 (calc) 6-22 Sodium [Moles/volume] in Serum or Plasma (test code = 2951-2 ) 137 mmol/L 135-146 Potassium [Moles/volume] in Serum or Plasma (test code = 282 3-3) 4.3 mmol/L 3.5-5.3 Chloride [Moles/volume] in Serum or Plasma (test code = 5 -0) 99 mmol/L 98-110 Carbon dioxide, total [Moles/volume] in Serum or Plasm a (test code = 2027-) 30 mmol/L 20-31 Calcium [Mass/volume] in Serum or Plasma (test code = 92515- 6) 9.8 mg/dL 8.6-10.3 Protein [Mass/volume] in Serum or Plasma (test code = 2885-2) 7. 1 g/dL 6.1-8.1 Albumin [Mass/volume] in Serum or Plasma (test code = 1751-7) 4. 2 g/dL 3.6-5.1 Globulin [Mass/volume] in Serum by calculation (test c ode = 04676-3) 2.9 g/dL (calc) 1.9-3.7 Albumin/Globulin [Mass Ratio] in Serum or Plasma (test code = 1759-0) 1.4 (calc) 1.0-2.5 Bilirubin.total [Mass/volume] in Serum or Plasma (test code = 1974-) 0.3 mg/dL 0.2-1.2 Alkaline phosphatase [Enzymatic activity /volume] in Serum or Plasma (test code = 6768-6) 80 U/L 40-115 Aspartate aminotransferase [Enzymatic ac tivity/volume] in Serum or Plasma (test code = 1920-8) 20 U/L 10-35 Alanine aminotransferase [Enzymatic acti vity/volume] in Serum or Plasma (test code = 1742-6) 22 U/L 9-46 [facility] Auto Differential panel - [id number] 00:00:00 * Test Item Value Reference Range Interpretation Comments Leukocytes [#/volume] in Blood by Automated count (farzana t code = 6690-2) 6.1 thousand/uL 3.8-10.8 Erythrocytes [#/volume] in Blood by Automated count (t est code = 789-8) 4.50 million/uL 4.20-5.80 Hemoglobin [Mass/volume] in Blood (test code = 718-7) 12.3 g/dL 13.2-17.1 L Hematocrit [Volume Fraction] of Blood by Automated cou nt (test code = 4544-3) 38.0 % 38.5-50.0 L Erythrocyte mean corpuscular volume [Ent itic volume] by Automated count (test code = 787-2) 84.5 fL 80.0-100.0 Erythrocyte mean corpuscular hemoglobin [Entitic mass] by Automated count (test code = 785-6) 27.3 pg 27.0-33.0 Erythrocyte mean corpuscular hemoglobin concentration [Mass/volume] by Automated count (test code = 786-4) 32.3 g/dL 32.0-36.0 Erythrocyte distribution width [Ratio] by Automated co unt (test code = 788-0) 14.4 % 11.0-15.0 Platelets [#/volume] in Blood by Automated count (test code = 777-3) 291 thousand/uL 140-400 Platelet mean volume [Entitic volume] in Blood by Tess (test code = 776-5) 8.1 fL 7.5-11.5 Neutrophils [#/volume] in Blood by Automated count (te st code = 751-8) 3623 cells/uL 0789-5208 Lymphocytes [#/volume] in Blood by Automated count (te st code = 731-0) 1787 cells/uL 850-3900 Monocytes [#/volume] in Blood by Automated count (test code = 742-7) 366 cells/uL 200-950 Eosinophils [#/volume] in Blood by Automated count (te st code = 711-2) 287 cells/uL 15-500 Basophils [#/volume] in Blood by Automated count (test code = 704-7) 37 cells/uL 0-200 Neutrophils/100 leukocytes in Blood by Automated count (test code = 770-8) 59.4 % Lymphocytes/100 leukocytes in Blood by Automated count (test code = 736-9) 29.3 % Monocytes/100 leukocytes in Blood by Automated count (test c ode = 5905-5) 6.0 % Eosinophils/100 leukocytes in Blood by Automated count (test code = 713-8) 4.7 % Basophils/100 leukocytes in Blood by Automated count (test c ode = 706-2) 0.6 % [facility] [Mass/volume] in Serum or [id number] 00:00:00* Test Item Value Reference Range Interpretation Comments Thyroxine (T4) [Mass/volume] in Serum or Plasma (test code = 3026-2) 6.2 mcg/dL 4.5-12.0 [facility]in [Units/volume] in Serum or [id number] 00:00:00* Test Item Value Reference Range Interpretation Comments Thyrotropin [Units/volume] in Serum or Plasma (test code = 3 016-3) 0.47 mIU/L 0.40-4.50 [facility]Pro[facility] Ag [Mass/volume] in Serum or Plasma 2016-05-15 00:00:00* Test Item Value Reference Range Interpretation Comments Prostate specific Ag [Mass/volume] in Serum or Plasma (test code = 2857-1) 0.3 NG/mL < or = 4.0 [facility]
[2019-11-17] MEDS ORDERED: SODIUM CHLORIDE 0.9% 1000ML 1,000 ML IV STA (10:07)
[2019-11-17] MEDS ORDERED: ONDANSETRON HCL INJ 2MG/ML 2ML 2 MG/ML VIAL IV STA (10:07)
[2019-11-17] MEDS ORDERED: MORPHINE SULFATE 2 MG/ML SYR 1ML IV STA (10:07)
[2019-11-17] MEDS ORDERED: ASPIRIN 81 MG CHEW TAB PO ONE (10:15)
[2019-11-17 10:37] LABS: BASOPHILS # (AUTO) 0.1 (0.0-0.1); BASOPHILS % 0.8 % (0.0-1.0); EOSINOPHILS # (AUTO) 0.3 (0.0-0.4); EOSINOPHILS % 3.1 % (0.0-6.0); HEMATOCRIT 40.7 % (38.2-49.6); HEMOGLOBIN 12.4 g/dL (14.0-18.0); LYMPHOCYTES # (AUTO) 1.3 (1.0-3.2); LYMPHOCYTES % 12.3 % (18.0-39.1); MEAN CORPUSCULAR HEMOGLOBIN 24.9 pg (28-32); MEAN CORPUSCULAR HGB CONC 30.5 g/dL (31-35); MEAN CORPUSCULAR VOLUME 81.7 fL (81-99); MONOCYTES # (AUTO) 0.9 (0.2-0.8); MONOCYTES % 8.1 % (4.4-11.3); NEUTROPHILS # (AUTO) 8.1 (2.1-6.9); NEUTROPHILS % 75.4 % (38.7-80.0); PLATELET COUNT 434 x10e3/uL (140-360); RED BLOOD COUNT 4.98 x10e6/uL (4.3-5.7); RED CELL DISTRIBUTION WIDTH 14.7 % (11.7-14.4)
--- NOTE | 2019-11-17 10:45 | Emergency Department Note ---
History of Present Illnes History of Present Illness Chief Complaint: Respiratory History of Present Illness This is a 69 year old male PATIENT IN FROM HOME WITH COMPLAINTS OF IN CREASED SHORTNESS OF BREATH AND PAIN WITH INSPIRATION SINCE YESTERDAY; PATIENT STATES HE HAS HAD A COUGH AND FEVER OFF AND ON FOR MORE THAN A YEAR. STATES HISTORY OF ASBESTOSIS, AND FORMER SMOKER (QUIT 10 YEARS AGO). 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 Any updates have been documented here. Past Medical History Recent Fever: No Clinical Suspicion of Infectio: No New/Unexplained Change in Ment: No Past Medical History: Hypertension, Diabetes, COPD, CA, CAD, Hyperlipedemia, Chronic Back Pain Other Medical History: ASBESTOSIS Past Surgical History: T&A, PCI, Hip Replacement, Back Surgery Other Surgery: RIGHT HIP REPLACEMENT Social History Smoking Cessation: Former smoker (quit 10 yrs ago) Counseling Performed: No Alcohol Use: None Any Illegal Drug Use: No TB Exposure/Symptoms: No Physically hurt or threatened: No Family History Family history of heart diseas: No Other Last Tetanus: UNKNOWN Any Pre-Existing Lines (PICC,: No Is patient up to date on immun: Yes Last Flu: utd Last Pneumovax: utd Review of Systems Review of Systems Constitutional: as per HPI, fever (chronic intermittent x 1 year) EENTM: no symptoms Cardiovascular: chest pain (pleuritic since yesterday) Respiratory: chest congestion, cough (chronic), pain on inspiration, pain with cough, dyspnea Gastrointestinal: no symptoms Genitourinary: no symptoms Musculoskeletal: no symptoms Neurological: no symptoms Psychological: no symptoms Endocrine: no symptoms Hematological/Lymphatic: no symptoms Review of other systems All other systems reviewed and negative. Physical Exam Related Data Allergies: Coded Allergies: No Known Allergies (Unverified , 11/17/19) Triage Vital Signs Vital Signs Date Time Temp Pulse Resp B/P (MAP) Pulse Ox O2 Delivery O2 Flow Rate FiO2 11/17/19 09:52 97.5 78 20 157/77 96 Physical Exam CONSTITUTIONAL Constitutional: well-developed, well-nourished HENT HENT: normocephalic, atraumatic, oropharynx clear/moist, nose normal HENT L/R: left ext ear normal, right ext ear normal EYES Eyes: PERRL, conjunctivae normal NECK Neck: ROM normal PULMONARY Pulmonary: effort normal, breath sounds normal CARDIOVASCULAR Cardiovascular: regular rhythm, heart sounds normal, capillary refill normal, normal rate GASTROINTESTINAL Abdominal: soft, nontender, bowel sounds normal GENITOURINARY Genitourinary: exam deferred SKIN Skin: warm, dry MUSCULOSKELETAL Musculoskeletal: ROM normal NEUROLOGICAL Neurological: alert, oriented x 3, no gross motor or sensory deficits PSYCHOLOGICAL Psychological: mood/affect normal, judgement normal Results Laboratory Laboratory Laboratory Tests Test 11/17/19 10:00 White Blood Count 10.66 x10e3/uL (4.8-10.8) Red Blood Count 4.98 x10e6/uL (4.3-5.7) Hemoglobin 12.4 g/dL (14.0-18.0) Hematocrit 40.7 % (38.2-49.6) Mean Corpuscular Volume 81.7 fL (81-99) Mean Corpuscular Hemoglobin 24.9 pg (28-32) Mean Corpuscular Hemoglobin Concent 30.5 g/dL (31-35) Red Cell Distribution Width 14.7 % (11.7-14.4) Platelet Count 434 x10e3/uL (140-360) Neutrophils (%) (Auto) 75.4 % (38.7-80.0) Lymphocytes (%) (Auto) 12.3 % (18.0-39.1) Monocytes (%) (Auto) 8.1 % (4.4-11.3) Eosinophils (%) (Auto) 3.1 % (0.0-6.0) Basophils (%) (Auto) 0.8 % (0.0-1.0) Neutrophils # (Auto) 8.1 (2.1-6.9) Lymphocytes # (Auto) 1.3 (1.0-3.2) Monocytes # (Auto) 0.9 (0.2-0.8) Eosinophils # (Auto) 0.3 (0.0-0.4) Basophils # (Auto) 0.1 (0.0-0.1) Absolute Immature Granulocyte (auto 0.03 x10e3/uL (0-0.1) Prothrombin Time 12.2 seconds (11.9-14.5) Prothromb Time International Ratio 0.86 Activated Partial Thromboplast Time 36.3 seconds (23.8-35.5) Urine Color Yellow (YELLOW) Urine Clarity Clear (CLEAR) Urine pH 7.5 (5 - 7) Urine Specific [place] 1.020 (1.010-1.025) Urine Protein Negative (NEGATIVE) Urine Glucose (UA) Negative (NEGATIVE) Urine Ketones Negative (NEGATIVE) Urine Blood Negative (NEGATIVE) Urine Nitrite Negative (NEGATIVE) Urine Bilirubin Negative (NEGATIVE) Urine Urobilinogen 0.2 mg/dL (0.2 - 1) Urine Leukocyte Esterase Negative (NEGATIVE) Urine RBC None /HPF (0-5) Urine WBC 0-5 /HPF (0-5) Urine Epithelial Cells Rare /LPF (NONE) Urine Bacteria Rare /HPF (NONE) Sodium Level 137 mmol/L (136-145) Potassium Level 4.2 mmol/L (3.5-5.1) Chloride Level 97 mmol/L (98-107) Carbon Dioxide Level 28 mmol/L (22-29) Anion Gap 16.2 mmol/L (8-16) Blood Urea Nitrogen 10 mg/dL (7-26) Creatinine 0.71 mg/dL (0.72-1.25) Estimat Glomerular Filtration Rate > 60 ML/MIN (60-) BUN/Creatinine Ratio 14 (6-25) Glucose Level 129 mg/dL (74-118) Calcium Level 10.4 mg/dL (8.4-10.2) Magnesium Level 2.0 MG/DL (1.3-2.1) Total Bilirubin 0.4 mg/dL (0.2-1.2) Aspartate Amino Transf (AST/SGOT) 14 IU/L (5-34) Alanine Aminotransferase (ALT/SGPT) 14 IU/L (0-55) Alkaline Phosphatase 78 IU/L (40-150) Creatine Kinase 53 IU/L (30-200) Creatine Kinase MB 1.40 ng/mL (0-5.0) Troponin I 0.013 ng/mL (0-0.300) B-Type Natriuretic Peptide 74.4 pg/mL (0-100) Total Protein 8.2 g/dL (6.5-8.1) Albumin 3.2 g/dL (3.5-5.0) Globulin 5.0 g/dL (2.3-3.5) Albumin/Globulin Ratio 0.6 (0.8-2.0) Laboratory Tests Test 11/17/19 10:00 Lab results reviewed: Yes Imaging Imaging results reviewed: Yes Impressions TECHNIQUE: Frontal view of the chest. INDICATION: ^cp cough sob ^[id number] ^[id number] COMPARISON: None. IMPRESSION: Lines and hardware: None. Heart and mediastinum: Tortuous aorta. Lungs and pleura: Left mid and lower lung zone patchy airspace opacities with a small pleural effusion. No right pleural effusion. No pneumothorax. Soft tissues and bones: No acute abnormality. Signed by: Tommie Luo MD on 11/17/2019 11:00 AM Diagnostics Tests Diagnostic test(s) reviewed: Yes Procedures 12 Lead ECG Interpretation Cylinder Devalver: Interpreted by ED physician Date: November 17, 2019 Time: 09:54 Rhythm: sinus rhythm Rate: normal (74) QRS axis: normal ST segments normal: Yes T waves normal: Yes Q waves: V1, V2 Clinical Impression: abnormal ECG Critical Care Time Subsequent provider I assumed direction of critical care for this patient from another provider of my specialty. Assessment & Plan Reassessment Reassessment PT WITH H/O HTN, DM, ASBESTOSIS/COPD, CAD/CA/PCI PRESENTS WITH SOB, CHRONIC COUGH, AND NEW LEFT SIDED CP - check cbc, chem's, ecg, cardiac enzymes, cxr, coag's, CT chest, COVID19 swab - r/o STEMI/NSTEMI, pneumonia, PE, CHF, COVID19. Will admit - I spoke with Dr Arenas, Dr Moises Hidalgo, and Dr Reyes [id number] - Pt doing well, I reviewed labs and CXR findings, agrees with admission for IV abx's. CT chest still needs to be done Assessment & Plan Final Impression: (1) Pneumonia (2) Pleuritic chest pain Assessment & Plan admit Depart Disposition: ADMITTED Last Vital Signs Date Time Temp Pulse Resp B/P (MAP) Pulse Ox O2 Delivery O2 Flow Rate FiO2 11/17/19 10:21 79 18 145/82 98 11/17/19 09:52 97.5 Medications in the ED Morphine Sulfate 6 mg ONCE STAT IV Last administered on 11/17/19 10:34; Admin Dose 6 MG; Start 11/17/19 at 10:07; Stop 11/17/19 at 10:08 Ondansetron HCl 4 mg ONCE STAT IV Last administered on 11/17/19 10:34; Admin Dose 4 MG; Start 11/17/19 at 10:07; Stop 11/17/19 at 10:08 Sodium Chloride 1,000 ml @ 0 mls/hr Q0M STAT IV Last administered on 11/17/19 10:19; Admin Dose 999 MLS/HR; Start 11/17/19 at 10:07; Stop 11/17/19 at 10:08 Aspirin 81 mg PRN ONCE PO Last administered on 11/17/19at 10:34; Admin Dose 81 MG; Start 11/17/19 at 10:15; Stop 11/17/19 at 10:16 VAUGHN DESIR MD November 17, 2019 10:45
[2019-11-17 10:50] LABS: CLARITY,URINE CLEAR (CLEAR); COLOR,URINE YELLOW (YELLOW); LEUKOCYTE ESTERASE ,URINE NEGATIVE (NEGATIVE); NITRITE,URINE NEGATIVE (NEGATIVE); PROTEIN,URINE DIPSTICK NEGATIVE (NEGATIVE)
[2019-11-17 10:51] LABS: BILIRUBIN,URINE NEGATIVE (NEGATIVE); KETONES,URINE NEGATIVE (NEGATIVE); URINE UROBILINOGEN 0.2 mg/dL (0.2 - 1)
[2019-11-17] MEDS ORDERED: SODIUM CHLORIDE 0.9% 50ML 50 ML ONE (11:01)
[2019-11-17] MEDS ORDERED: IOPAMIDOL 370 MG/ML 200 ML INFUS..BTL INJ ONE (11:02)
[2019-11-17 11:03] LABS: ALANINE AMINOTRANSFERASE 14 IU/L (0-55); ALBUMIN 3.2 g/dL (3.5-5.0); ALBUMIN/GLOBULIN RATIO 0.6 (0.8-2.0); ALKALINE PHOSPHATASE 78 IU/L (40-150); ANION GAP 16.2 mmol/L (8-16); BACTERIA,URINE RARE /HPF; BLOOD UREA NITROGEN 10 mg/dL (7-26); BUN/CREATININE RATIO 14 (6-25); CALCIUM 10.4 mg/dL (8.4-10.2); CARBON DIOXIDE 28 mmol/L (22-29); CHLORIDE 97 mmol/L (98-107); CREATINE KINASE 53 IU/L (30-200); CREATININE, SERUM 0.71 mg/dL (0.72-1.25); EPITHELIAL CELLS,URINE RARE /LPF; EST GLOMERULAR FILTRATION RATE > 60 ML/MIN (60-); GLUCOSE 129 mg/dL (74-118); POTASSIUM 4.2 mmol/L (3.5-5.1); SODIUM 137 mmol/L (136-145); WBC,URINE (MAN) 0-5 /HPF (0-5)
--- NOTE | 2019-11-17 11:03 | Diagnostic Imaging Report ---
TECHNIQUE: Frontal view of the chest. INDICATION: ^cp cough sob ^[id number] ^[id number] COMPARISON: None. IMPRESSION: Lines and hardware: None. Heart and mediastinum: Tortuous aorta. Lungs and pleura: Left mid and lower lung zone patchy airspace opacities with a small pleural effusion. No right pleural effusion. No pneumothorax. Soft tissues and bones: No acute abnormality. Signed by: Tommie Luo MD on 11/17/2019 11:00 AM
--- OUTSIDE RECORDS SUMMARY | 2019-11-17 11:13 | XMS REPORT ---
Author Author [facility] Organization [facility] Address [address] [place] [address] Phone Unavailable Care Team Providers Care Delivery And Mail Sorter Name Role Phone Carolin DESIR Attphys Unavailable Problems Condition Name Condition Details Condition Category Status Onset Date Resolution Date Last Treatment Date Treating Clinician Comments Source Asbestosis Asbestosis Problem Active 2017-10-14 00:00:00 [facility] Continuous opioid dependence Continuous Opioid Dependence Problem Active 2017-04-24 00:00:00 [facility] Tobacco dependence in remission Tobacco Dependence in Remission Pro blem Active 2017-04-24 00:00:00 [facility] Lower urinary tract symptoms due to benign prostatic h ypertrophy Lower Urinary Tract Symptoms Due to Benign Prostatic Hypertrophy Problem Active 2017-04-24 00:00:00 [facility] Male hypogonadism Male Hypogonadism Problem Active 2016-12-06 00:00:00 [facility] Prediabetes Prediabetes Problem Active 2016-06-13 00:00:00 [facility] Anxiety disorder Anxiety Disorder Problem Active 2016-04-13 00:00:00 [facility] Pure hypercholesterolemia Pure Hypercholesterolemia Problem Ac tive 2015-07-06 00:00:00 [facility] Gastroesophageal reflux disease without esophagitis Ga stroesophageal Reflux Disease without Esophagitis Problem Active 2015-07-06 00:00:00 [facility] Patient post percutaneous transluminal coronary angiop lasty Patient Post Percutaneous Transluminal Coronary Angioplasty Problem Active 2015-05-09 00:00:00 [facility] Lactose intolerance Lactose Intolerance Problem Active 2015-04-08 00:00 :00 [facility] Tear film insufficiency Tear Film Insufficiency Problem Active 2015-04-08 00:00:00 [facility] Hypertensive heart disease Hypertensive Heart Disease Problem Active 2015-04-08 00:00:00 [facility] Old myocardial infarction Old Myocardial Infarction Problem Ac tive 2015-04-08 00:00:00 [facility] Hip pain Hip Pain Problem Active 2015-04-08 00:00:00 [facility] Low back pain Low Back Pain Problem Active 2015-04-08 00:00:00 [facility] History of placement of stent for coronary artery dise ase History of Placement of Stent for Coronary Artery Disease Problem Active 2015-04-08 00:00:00 [facility] Antiplatelet agent therapy Antiplatelet Agent Therapy Problem Active 2015-04-08 00:00:00 [facility] Long-term drug therapy Long-term Drug Therapy Problem Active 2015-04-08 00:00:00 [facility] Long-term current use of drug therapy Long-term Current Use of Drug Therapy Problem Active 2015-04-08 00:00:00 [facility] Clinical finding Clinical Finding Problem Active 2015-04-08 00 :00:00 2016-05-14 00:00:00 [facility] roel Allergies, Adverse Reactions, Alerts This patient has no known allergies or adverse reactions. Social History Smoking Status Start Date Stop Date Source Former Smoker [facility] roel Medications Ordered Medication Name Filled Medication Name [...] 1 tablet every day by [facility] route. [facility]ith[facility] 250 mg tablet TAKE 2 TABLET [...] ORAL ROUTE ONCE DAILY FOR 4 DAYS [facility] Centrum Silver Centrum Silver No Centrum Si lver [facility] D3-2000 2,000 unit capsule Take by oral route. D3-2000 2,000 unit capsule Take by oral route. No D3-2000 2,000 un it capsule Take by oral route. [facility] diclofenac 1 % topical gel apply 1 inch to affected ar ea 4 times a day diclofenac 1 % topical gel apply 1 inch to affected area 4 times a day No diclofenac 1 % topical gel apply 1 inch to affe cted area 4 times a day [facility] hydrocodone 10 mg-acetaminophen 325 mg tablet 2 tablet s q 8 hrs x 30 days hydrocodone 10 mg-acetaminophen 325 mg tablet 2 tablets q 8 hrs x 30 days No hydrocodone 10 mg-acetaminophen 325 mg tablet 2 tablets q 8 hrs x 30 days [facility] hydroxyzine HCl 10 mg tablet TAKE 1 TO 2 TABLETS BY MOUTH EVERY 8 HOURS NEEDED hydroxyzine HCl 10 mg tablet TAKE 1 TO 2 TABLETS BY MOUTH EVERY 8 HOURS NEEDED No hydroxyzine HC l 10 mg tablet TAKE 1 TO 2 TABLETS BY MOUTH EVERY 8 HOURS NEEDED [facility] lorazepam 2 mg tablet Take 1 tablet twice a day by ora l route for 30 days. lorazepam 2 mg tablet Take 1 tablet twice a day by oral route for 30 days. No 1 BID lorazepam 2 mg tablet Take 1 tablet twice a day by oral route for 30 days. [facility] metformin 500 mg tablet TAKE 2 TABLETS BY MOUTH TWICE DAILY DIRECTED metformin 500 mg tablet TAKE 2 TABLETS BY MOUTH TWICE DAILY DIRECTED No metformin 500 mg tablet TAKE 2 TABLE TS BY MOUTH TWICE DAILY DIRECTED [facility] metoprolol succinate ER 50 mg tablet,ext ended [...] day by oral route for 90 days. [facility]en 500 mg tablet TAKE 1 TABLET BY MOUTH TWICE DA ANN MARIE naproxen 500 mg tablet TAKE 1 TABLET BY MOUTH TWICE DAILY No naproxen 500 mg tablet TAKE 1 TABLET BY MOUTH TWICE DAILY [facility] pantoprazole 40 mg tablet,delayed releas e Take 1 tablet every day by oral route for 90 days. pantoprazole 40 mg tablet,delayed releas e Take 1 tablet every day by oral route for 90 days. No 1 Q1D pantoprazole 40 mg tablet,delayed release Take 1 tablet every day by oral route for 90 days. [facility] rosuvastatin 5 mg tablet Take 1 tablet [...] TAKE 1 CAPSULE BY MOUTH EVERY DAY [facility] testosterone cypionate 200 mg/ml soln inject 1ml every 2 weeks testosterone cypionate 200 mg/ml soln inject 1ml every 2 weeks No testosterone cypionate 200 mg/ml soln inject 1ml every 2 weeks [facility] diclofenac sodium 1 % gel diclofenac sodium 1 % gel 00:00:00 No diclofenac sodium 1 % gel [facility] hydrocodone/acetaminophen 10-325 mg tabs hydrocodone/a cetaminophen 10-325 mg tabs 2017-10-14 00:00:00 No hydr ocodone/acetaminophen 10-325 mg tabs [facility] lorazepam 2 mg tabs lorazepam 2 mg tabs 2017-10-14 00:00:00 No [facility]azepam 2 mg tabs [facility] metoprolol succinate er 50 mg tb24 metoprolol succinate er 50 mg tb24 2017-10-14 00:00:00 No metoprolol succinate er 50 mg tb24 [facility] naproxen 500 mg tabs naproxen 500 mg tabs 2017-10-14 00:00:00 No naproxen 500 mg tabs [facility] tila pantoprazole sodium 40 mg tbec pantoprazole sodium 40 mg tbe 2017-10-14 00:00:00 No pantoprazole sodium 40 mg tbec [facility] rosuvastatin calcium 5 mg tabs rosuvastatin calcium 5 mg tabs 2017-08-16 00:00:00 No rosuvastatin calcium 5 mg tabs [facility] tamsulosin hcl 0.4 mg caps tamsulosin hcl 0.4 mg caps 2017 00:00:00 No tamsulosin hcl 0.4 mg caps [facility] metformin hcl 500 mg tabs metformin hcl 500 mg tabs 00:00:00 No metformin hcl 500 mg tabs [facility] Practice peg-3350/nacl/na bicarbonate/kcl 420 gm solr peg-3350/ nacl/na bicarbonate/kcl 420 gm solr 2017-06-19 00:00:00 No peg-3350/nacl/na bicarbonate/kcl 420 [facility] ice polyethylene glycol 3350 powd polyethylene glycol 3350 powd 2017-06-19 00:00:00 No polyethylene glycol 3350 powd [facility] rosuvastatin 20 mg tablet Take 1 tablet every day by oral route at bedtime for 90 days. rosuvastatin 20 mg tablet Take 1 tablet every day by oral route at bedtime for 90 days. 2017-06-19 00:00:00 No 1 Q1D rosuvastatin 20 mg tablet Take 1 tablet every day by oral route at bedtime for 90 days. [facility] testosterone cypionate 200 mg/mL intramuscular oil farzana tosterone cypionate 200 mg/mL intramuscular oil 2017-06-19 00:00:00 No testosterone cypionate 200 mg/mL intramuscular oil [facility] methylprednisolone dose pack 4 mg tbpk methylprednisolone dose p ack 4 mg tbpk 2017-03-01 00:00:00 No methylprednisolone d ose pack 4 mg tbpk [facility] rosuvastatin calcium 20 mg tabs rosuvastatin calcium 20 mg tabs 2017-03-01 00:00:00 No rosuvastatin calcium 20 mg tabs [facility] Medrol (Juan Diego) 4 mg tablets in [...] not skip any doses; take all tablets [facility] Kenalog 40 mg/mL suspension for injectio n 1 ml injected into the Carpal ligament, using sterile technique Kenalog 40 mg/mL suspension for injectio n 1 ml injected into the Carpal ligament, using sterile technique 2017-01-03 00:00:00 No Kenalog 40 mg/ mL suspension for injection 1 ml injected into the Carpal ligament, using sterile technique [facility] lidocaine 10 mg/mL (1 %) injection solut [...] area of the R carpal tunnel area [facility] triamcinolone acetonide 0.1 % topical cr eam [...] BY TOPICAL ROUTE 2 TIMES PER DAY [facility] boostrix 5-2.5-18.5 susp boostrix 5-2.5-18.5 susp 2016-11-15 00: 00:00 No boostrix 5-2.5-18.5 susp [facility] triamcinolone acetonide 0.1 % dental pas te apple a small pea-sized amount directy to lesion on the gum triamcinolone acetonide 0.1 % dental pas te apple a small pea-sized amount directy to lesion on the gum 2016-11-07 00:0 0:00 No triamcinolone aceton melva 0.1 % dental paste apple a small pea-sized amount directy to lesion on the gum [facility] azithromycin 500 mg tablet Take 1 tablet every day by oral route for 3 days. azithromycin 500 mg tablet Take 1 tablet every day by oral route for 3 days. 2016-10-08 00:00:00 No 1 Q1D azith romycin 500 mg tablet Take 1 tablet every day by oral route for 3 days. [facility] azithromycin 500 mg tabs azithromycin 500 mg tabs 2016-10-08 00: 00:00 No azithromycin 500 mg tabs [facility] triamcinolone acetonide 0.1 % crea triamcinolone acetonide 0.1 % crea 2016-10-08 00:00:00 No triamcinolone aceton melva 0.1 % crea [facility] triamcinolone acetonide 0.1 % pste triamcinolone acetonide 0.1 % pste 2016-10-08 00:00:00 No triamcinolone aceton melva 0.1 % [facility] Depo-Medrol 80 mg/mL suspension for inje ction 1 cc injected deep IM, once, as a single dose Depo-Medrol 80 mg/mL suspension for inje ction 1 cc injected deep IM, once, as a single dose 2016-09-10 00:00:00 No Depo-Medrol 80 mg/mL suspension for injection 1 cc injected deep IM, once, as a single dose [facility] crestor 20 mg tabs crestor 20 mg tabs 2016-06-13 00:00:00 No crestor 20 mg tabs [facility] promethazine hcl 25 mg tabs promethazine hcl 25 mg tabs 2016-04-13 00:00:00 No promethazine hcl 25 mg tabs [facility] Immunizations Ordered Immunization Name Filled Immunization Name Date Status Comments Source influenza, injectable, quadrivalent influenza, injectable, q uadrivalent 2017-04-17 00:00:00 Completed [facility] Tdap Tdap 2016-07-01 00:00:00 Completed [facility] pneumococcal conjugate PCV 13 pneumococcal conjugate PCV 13 2015 00:00:00 Completed [facility] pneumococcal polysaccharide PPV23 pneumococcal polysaccharid e PPV23 2015-03-31 00:00:00 Completed [facility] influenza, seasonal, injectable influenza, seasonal, injecta ble 2014-03-23 00:00:00 [facility] zoster zoster 2013-07-01 00:00:00 Completed [facility] Vital Signs Vital Name Observation Time Observation Value Comments Source BP Diastolic 2017-10-14 00:00:00 75 mm[Hg] [facility] Height 2017-10-14 00:00:00 72.5 [in_i] [facility] BMI (Body Mass Index) 2017-10-14 00:00:00 28.4 kg/m2 [facility] BP Systolic 2017-10-14 00:00:00 123 mm[Hg] [facility] Body Weight 2017-10-14 00:00:00 212.4 [lb_av] [facility] BP Diastolic 2017-09-12 00:00:00 84 mm[Hg] [facility] Height 2017-09-12 00:00:00 72.5 [in_i] [facility] BMI (Body Mass Index) 2017-09-12 00:00:00 29 kg/m2 [facility] BP Systolic 2017-09-12 00:00:00 130 mm[Hg] [facility] Body Weight 2016-11-07 00:00:00 214.4 [lb_av] [facility] BP Diastolic 2016-10-08 00:00:00 84 [...] Family Practice Height 2015-07-06 00:00:00 75 [in_i] [facility] BMI (Body Mass Index) 2015-07-06 [...] Practice Body Weight 2005-01-16 00:00:00 201 [lb_av] [facility] Height 2005-01-10 00:00:00 73 [in_i] [facility] Body Weight 2005-01-10 00:00:00 205 [lb_av] [facility] Height 2004-12-29 00:00:00 73 [in_i] [facility] Body Weight 2004-12-29 00:00:00 202 [lb_av] [facility] Height 2004-12-15 00:00:00 73 [in_i] [facility] Body Weight 2004-12-15 00:00:00 208 [lb_av] [facility] Height 2004-11-24 00:00:00 73 [in_i] [facility] Body Weight 2004-11-24 00:00:00 206 [lb_av] [facility] Height 2004-10-30 00:00:00 73 [in_i] [facility] Body Weight 2004-10-30 00:00:00 212 [lb_av] [facility] Height 2004-09-29 00:00:00 73 [in_i] [facility] Body Weight 2004-09-29 00:00:00 209 [lb_av] [facility] Height 2004-09-06 00:00:00 73 [in_i] [facility] Body Weight 2004-09-06 00:00:00 210 [lb_av] [facility] Body Weight 2004-07-28 00:00:00 210 [lb_av] [facility] Body Weight 2004-06-15 00:00:00 216 [lb_av] [facility] Body Weight 2004-05-19 00:00:00 218 [lb_av] [facility] Body Weight 2004-04-28 00:00:00 215 [lb_av] [facility] Body Weight 2004-04-06 00:00:00 218 [lb_av] [facility] Body Weight 2004-03-07 00:00:00 218 [lb_av] [facility] Procedures Procedure Date / Time Performed Performing Clinician [facility] tara [id number] RADIOLOGIC EXAMINATION, CHEST 2017-10-14 00:00:00 [facility] MRI, lumbar spine, w/o contrast 2017-05-22 00:00:00 [facility] electrocardiogram 2017-04-24 00:00:00 [facility] halima Practice electrocardiogram 2016-05-14 00:00:00 [facility] Hip [facility] Encounters Start Date/Time End Date/Time Encounter Type Admission Type Attendi [facility] Care Department Encounter ID Source 2017-10-14 00:00:00 2017-10-14 00:00:00 Rao Manzo MD: [id number], [place] [address], Ph. VFP [facility] [id number] [facility] Prac [facility] 2017-09-12 00:00:00 2017-09-12 00:00:00 Rao Manzo MD: [id number], [place] [address], Ph. [facility] [id number] [facility] Prac [facility] 2017-08-16 00:00:00 2017-08-16 00:00:00 PATRICK VelozP: [id number], [place] [address], Ph. VFP [facility] [id number] [facility] Prac [facility] 2017-07-19 00:00:00 2017-07-19 00:00:00 Rao Manzo MD: [id number], [place] [address], Ph. VFP [facility] [id number] [facility] Prac [facility] 2017-06-19 00:00:00 2017-06-19 00:00:00 Rao Manzo MD: [id number], [address], [place] [address], Ph. VFP [facility] [id number] [facility] Prac [facility] 2017-05-22 00:00:00 2017-05-22 00:00:00 Rao Manzo MD: [id number], [place] [address], Ph. VFP [facility] [id number] [facility] Family Prac tila 2017-05-08 00:00:00 2017-05-08 00:00:00 Rao Manzo MD: [id number] [facility] [address] [place] [address], Ph. VFP [place] [facility] [id number] [facility] Family Prac tila 2017-04-24 00:00:00 2017-04-24 00:00:00 Rao Manzo MD: [id number] [facility], [place] [address], Ph. VFP [facility] [id number] [facility] Family Prac tila 2017-04-12 00:00:00 2017-04-12 00:00:00 Philippe soto MD: [id number] [facility], [address] [place] [address], Ph. VFP [facility] - [facility] [id number] [facility] 2017-03-28 00:00:00 2017-03-28 00:00:00 Rao Manzo MD: [id number] [facility], [address] [place] [phone], Ph. VFP [facility] - [facility] [id number] [facility] Family Prac tila 2017-03-15 00:00:00 2017-03-15 00:00:00 Philippe soto MD: [id number] [facility], [address] [place] [phone], Ph. VFP [place] - [facility] [id number] [facility] 2017-03-01 00:00:00 2017-03-01 00:00:00 Rao Manzo MD: [id number] [facility], [place] [address], Ph. VFP [place] [facility] - [facility] [id number] [facility] 2017-02-15 00:00:00 2017-02-15 00:00:00 Philippe soto MD: [id number], [address], [place] [address], Ph. VFP [facility] - [facility] [id number] [facility] 2017-02-06 00:00:00 2017-02-06 00:00:00 Jennifer Matthieu POLYMERIZATION ENGINEER: [address], [address], [place] [address], Ph. VFP [facility] - [facility] [id number] [facility] Family Prac tila 2017-01-31 00:00:00 2017-01-31 00:00:00 Jennifer PATRICK SommersP: [id number], [place] [address], Ph. VFP [facility] Practice [facility] [id number] [facility] Family Prac tila 2017-01-23 00:00:00 2017-01-23 00:00:00 ODILIA Rivas : [address], [address], [place] [address], Ph. VFP [facility] - [facility] [id number] [facility] Practice 2017-01-16 00:00:00 2017-01-16 00:00:00 Rao Manzo MD: [id number], [address] [place] [phone], Ph. VFP [facility] - [facility] [id number] [facility] Family Prac tila 2017-01-09 00:00:00 2017-01-09 00:00:00 Jennifer Matthieu POLYMERIZATION ENGINEER: [id number], [address], [place] [address], Ph. VFP [facility] - [facility] [id number] [facility] Family Prac tila 2017-01-03 00:00:00 2017-01-03 00:00:00 Rao Manzo MD: [id number], [address], [place] [address], Ph. VFP [place] - [facility] [id number] [facility] Prac tila 2016-12-27 00:00:00 2016-12-27 00:00:00 Jennifer Sommers, POLYMERIZATION ENGINEER: [id number] [facility], [place] [address], Ph. VFP [place] - [facility] [id number] [facility] Prac tila 2016-12-20 00:00:00 2016-12-20 00:00:00 Rao Manzo MD: [id number] [facility], [place] [address], Ph. VFP [place] - [facility] - [facility] [id number] [facility] Family Prac tila 2016-12-13 00:00:00 2016-12-13 00:00:00 Jennifer Sommers, POLYMERIZATION ENGINEER: [id number] [facility], [place] [address], Ph. VFP [place] - [facility] - [facility] [id number] [facility] Family Prac tila 2016-12-06 00:00:00 2016-12-06 00:00:00 Rao Manzo MD: [id number] [facility], [place] [address], Ph. VFP [facility] - [facility] [id number] [facility] Family Prac tila 2016-11-29 00:00:00 2016-11-29 00:00:00 ODILIA Rivas : [id number] [facility], [address] [place] [phone], Ph. VFP [place] - [facility] - [facility] [id number] [facility] 2016-11-22 00:00:00 2016-11-22 00:00:00 ODILIA Rivas : [id number] [address] [facility], [place] [address], Ph. VFP [place] - [facility] [id number] [facility] 2016-11-15 00:00:00 2016-11-15 00:00:00 Rao Manzo MD: [address], [place] [address], Ph. VFP [facility] - [facility] [id number] [facility] 2016-11-07 00:00:00 2016-11-07 00:00:00 Rao Manzo MD: [id number], [address], [place] [address], Ph. VFP [facility] - [facility] [id number] [facility] Prac tila 2016-10-08 00:00:00 2016-10-08 00:00:00 Rao Manzo MD: [address], [address], [place] [address], Ph. VFP [facility] - [facility] [id number] [facility]ac tila 2016-09-10 00:00:00 2016-09-10 00:00:00 Rao Manzo MD: [id number], [address] [address], Ph. VFP [facility] - [facility] [id number] [facility] tila 2016-08-13 00:00:00 2016-08-13 00:00:00 Rao Manzo MD: [id number], [address] [place] [phone], Ph. VFP [facility] - [facility] [id number] [facility] Prac tila 2016-07-13 00:00:00 2016-07-13 00:00:00 ODILIA Rivas : [address], [address] [place] [phone], Ph. VFP [facility] - [facility] [id number] [facility] ann marie Practice 2016-06-13 00:00:00 2016-06-13 00:00:00 ODILIA Rivas : [address], [address] [address], Ph. [facility] [id number] [facility] 2016-05-17 00:00:00 2016-05-17 00:00:00 Rao Manzo MD: [id number] [facility], [address] [address], Ph. [facility] [id number] [facility] 2016-05-14 00:00:00 2016-05-14 00:00:00 Rao Manzo MD: [id number] [facility], [address] [address], Ph. [facility] [id number] [facility] 2016-04-13 00:00:00 2016-04-13 00:00:00 China Mcmahan PA : [id number] [facility], [address] [address], Ph. [facility] [id number] [facility] Results Test Description Test Time Test Comments Results Result Comments Source CHEST SINGLE (PORTABLE) 2019-11-17 10:57:00 [place] [address] Patient Name: PAVAN ALMENDAREZ MR #: [id number] : 1950 Age/Sex: 69/M Req #: [id number] Adm Physician: Ordered by: VAUGHN DESIR MD Report #: [id number] Location: ER Room/Bed: Procedure: [id number] DX/CHEST SINGLE (PORTABLE) Exam Date: 11/17/19 Exam Time: 1034 REPORT STATUS: Signed TECHNIQUE: Frontal view of the chest. INDICATION: cp cough sob [id number] COMPARISON: None. IMPRESSION: Lines and hardware: None. Heart and mediastinum: Tortuous aorta. Lungs and pleura: Left mid and lower lung zone patchy airspace opacities with a small pleural effusion. No right pleural effusion. No pneumothorax. Soft tissues and bones: No acute abnormality. Signed by: Tommie Luo MD on 11/17/2019 11:00 AM Dictated By: TOMMIE LUO DO 99 Transcribed By: INÉS on 11/17/19 1100 COPY TO: VAUGHN DESIR MD Comprehensive metabolic 2000 panel - Serum or [...] gap (test code = anion gap) 7 [facility] PracticeLipid 1996 panel - Serum or [id number] 13:38:00* Test Item Value Reference Range Interpretation [...] code = LDL calc.) 55 mg/dL 0-130 [facility] [Mass/volume] in Serum or [id number] 13:38:00* Test Item Value Reference Range Interpretation Comments T4 total (test code = T4 total) 4.60 ug/dL 4.87-11.72 L [facility]ropin [Units/volume] in Serum or [id number] 13:38:00* Test Item Value Reference Range Interpretation Comments TSH (test code = TSH) 0.688 uIU/mL 0.350-4.940 [facility] specific Ag [Mass/volume] in Serum or Plasma 2017-04-25 13:38:00* Test Item Value Reference Range Interpretation Comments PSA, total (test code = PSA, total) 1.19 NG/mL <4.00 [facility] [Mass/volume] in Serum or [id number] 13:38:00* Test Item Value Reference Range Interpretation Comments testosterone, total (test code = testosterone, total) 580.21 NG/dL 220.91-715.81 [facility]CB W Auto Differential panel - [id number] 16:33:00 * Test Item Value Reference Range [...] (test code = baso#) 0.04 x10*3/?L 0.01-0.08 [facility]Hem[facility] A1c/Hemoglobin.total in [id number] 16:14:00* Test Item Value Reference Range Interpretation Comments A1C w/EAG (test code = A1C w/EAG) 6.4 % 1.0-5.7 H average blood glucose (test code = average blood glucose) 137 mg/dL [facility] [Mass/volume] in Serum or [id number] 15:56:00* Test Item Value Reference Range Interpretation Comments testosterone, total (test code = testosterone, total) 447.57 NG/dL 220.91-715.81 [facility] A1c/Hemoglobin.total in [id number] 15:39:00* Test Item Value Reference Range Interpretation Comments A1C w/EAG (test code = A1C w/EAG) 6.3 % 1.0-5.7 H average blood glucose (test code = average blood glucose) 134 mg/dL [facility] CenterHem[facility] A1c/Hemoglobin.total in [id number] 17:19:00* Test Item Value Reference Range Interpretation Comments A1C w/EAG (test code = A1C w/EAG) 6.4 % 1.0-5.7 H average blood glucose (test code = average blood glucose) 137 mg/dL [facility] W Auto Differential panel - [id number] 16:50:00 * Test Item Value Reference Range [...] (test code = baso#) 0.03 x10*3/?L 0.01-0.09 [facility]Comprehensive [facility] 1999 panel - Serum or Plasma 2016-11-07 16:44:00* [...] (test code = anion gap) 7 calc [facility] Center[facility] 1995 panel - Serum or [id number] 16:44:00* Test Item Value Reference Range Interpretation [...] code = LDL calc.) 45 mg/dL 0-130 [facility]Testosterone [Mass/volume] in Serum or [id number] 16:44:00* Test Item Value Reference Range Interpretation Comments testosterone, total (test code = testosterone, total) 63.41 NG/d L 220.91-715.81 L [facility] Center[facility] 1995 panel - Serum or [id number] 00:00:00* Test Item Value Reference Range Interpretation [...] or Plasma by calculation (test code = 99049-9) 57 mg/dL (calc) <130 Cholesterol.total/Cholesterol.in HDL [Ma ss ratio] in Serum or Plasma (test code = 9830-1) 2.9 (calc) < or = 5.0 Cholesterol non HDL [Mass/volume] in Serum or Plasma ( test code = 60712-9) 85 mg/dL (calc) [facility] 2000 panel - Serum or Plasma 2016-05-15 00:00:00* [...] by Creatinine-based formula (MDRD) (test code = 33240-7) 107 mL/min/1.73m2 > or = 60 Glomerular filtration rate/1.73 sq M pre dicted among blacks by Creatinine-based formula (MDRD) (test code = 00489-2) 124 mL/min/1.73m2 > or = 60 Urea nitrogen/Creatinine [Mass Ratio] in Serum or Plas ma (test code = 3097-3) 14 (calc) 6-22 Sodium [Moles/volume] in Serum or Plasma (test code = 2951-2 ) 137 mmol/L 135-146 Potassium [Moles/volume] in Serum or Plasma (test code = 282 3-3) 4.3 mmol/L 3.5-5.3 Chloride [Moles/volume] in Serum or Plasma (test code = 2075 -0) 99 mmol/L 98-110 Carbon dioxide, total [Moles/volume] in Serum or Plasm a (test code = 2027-) 30 mmol/L 20-31 Calcium [Mass/volume] in Serum or Plasma (test code = 99225- 6) 9.8 mg/dL 8.6-10.3 Protein [Mass/volume] in Serum or Plasma (test code = 2885-2) 7. 1 g/dL 6.1-8.1 Albumin [Mass/volume] in Serum or Plasma (test code = 1751-7) 4. 2 g/dL 3.6-5.1 Globulin [Mass/volume] in Serum by calculation (test c ode = 95667-8) 2.9 g/dL (calc) 1.9-3.7 Albumin/Globulin [Mass Ratio] [...] (test code = 1742-6) 22 U/L 9-46 [facility] W Auto Differential panel - [id number] 00:00:00 * Test Item Value Reference Range [...] mean volume [Entitic volume] in Blood by Beverleyker (test code = 776-5) 8.1 fL 7.5-11.5 Neutrophils [#/volume] in Blood by Automated count (te st code = 751-8) 3623 cells/uL 6692-6069 Lymphocytes [#/volume] in Blood by Automated count [...] (test c ode = 706-2) 0.6 % [facility]yroxine (T4) [Mass/volume] in Serum or [id number] 00:00:00* Test Item Value Reference Range Interpretation Comments Thyroxine (T4) [Mass/volume] in Serum or Plasma (test code = 3026-2) 6.2 mcg/dL 4.5-12.0 [facility] CenterThyrotropin [Units/volume] in Serum or [id number] 00:00:00* Test Item Value Reference Range Interpretation Comments Thyrotropin [Units/volume] in Serum or Plasma (test code = 3 016-3) 0.47 mIU/L 0.40-4.50 [facility] CenterPro[facility] specific Ag [Mass/volume] in Serum or Plasma 2016-05-15 00:00:00* Test Item Value Reference Range Interpretation Comments Prostate specific Ag [Mass/volume] in Serum or Plasma (test code = 2857-1) 0.3 NG/mL < or = 4.0 [facility]
[2019-11-17] MEDS ORDERED: ALBUTEROL SULFATE HFA 8GM INHALATION AEROSOL INH PRN (11:15)
[2019-11-17] MEDS ORDERED: SODIUM CHLORIDE 0.9% 1000ML 1,000 ML IV ONE (11:15)
[2019-11-17 11:17] LABS: INR 0.86; PROTHROMBIN TIME 12.2 seconds (11.9-14.5)
[2019-11-17] MEDS: CEFTRIAXONE SOD 1 GM/NS 50 ML 50 ML IV SCH (11:17)
[2019-11-17 11:18] LABS: PARTIAL THROMBOPLASTIN TIME 36.3 seconds (23.8-35.5)
--- NOTE | 2019-11-17 11:23 | NUR ---
consult [id number]
[2019-11-17] MEDS: AZITHROMYCIN 500MG/NS 250 ML 250 ML IV SCH (11:25)
[2019-11-17] MEDS ORDERED: ACETAMINOPHEN 325 MG TAB PO PRN (11:45)
[2019-11-17] MEDS ORDERED: ACETAMINOPHEN/CODEINE 300MG - 30MG TAB PO PRN (11:45)
[2019-11-17] MEDS ORDERED: HYDRALAZINE HCL 20 MG/ML VIAL IV PRN (11:45)
[2019-11-17] MEDS ORDERED: ONDANSETRON HCL INJ 2MG/ML 2ML 2 MG/ML VIAL IV PRN (11:45)
[2019-11-17] MEDS ORDERED: METFORMIN HCL500 MG (12:20)
[2019-11-17] MEDS ORDERED: PANTOPRAZOLE SO40 MG (12:20)
[2019-11-17] MEDS ORDERED: PROAIR HFA INH8.5 GM (12:20)
[2019-11-17] MEDS ORDERED: ROSUVASTATIN CAL5 MG (12:20)
[2019-11-17] MEDS ORDERED: LORAZEPAM PO (12:20)
[2019-11-17] MEDS ORDERED: ANORO ELLIPTA1 EACH (12:20)
[2019-11-17] MEDS ORDERED: HYDROCODON-ACE1 EAC9 PO (12:20)
[2019-11-17] MEDS ORDERED: METOPROLOL SUCC50 MG (12:20)
--- NOTE | 2019-11-17 14:09 | NUR ---
report received from er, awaiting arrival to
[2019-11-17] MEDS: HYDROCODONE/APAP 10MG-325MG TAB PO PRN ×2 (14:14→20:29)
--- NOTE | 2019-11-17 14:43 | Diagnostic Imaging Report ---
EXAM: CT Chest with intravenous contrast HISTORY: ^PE PROTOCOL COMPARISON: Chest radiograph same date TECHNIQUE: CT of the chest WITH intravenous contrast (pulmonary embolism protocol). Coronal and sagittal reformations were obtained. Scan was performed during the pulmonary arterial phase. DOSE REDUCTION: The examination was performed according to the departmental dose-optimization program, which includes automated exposure control, adjustment of the mA and/or kV according to patient size and/or use of iterative reconstruction technique. FINDINGS: Limited exam due to contrast bolus timing/streak artifact. LINES and TUBES: None. PULMONARY ARTERIES: Proximal to the bifurcation of the main pulmonary artery, the main pulmonary artery is 2.5 cm in diameter. No filling defects within the main through proximal segmental pulmonary arteries to suggest pulmonary embolus. LUNGS, AIRWAYS AND PLEURA: Lingular 6.4 cm consolidation with adjacent tree-in-bud nodularity. Left lower lobe atelectasis with trace pleural effusion. HEART AND MEDIASTINUM: Left thyroid lobe 0.4 cm hypodensity. Left hilar lymphadenopathy measuring up to 2.5 cm. Infracarinal, paratracheal and para-aortic lymphadenopathy measuring up to 1.2 cm. The heart and pericardium are within normal limits. SOFT TISSUES AND BONES: Unremarkable. UPPER ABDOMEN: Unremarkable. IMPRESSION: 1. No pulmonary embolus within the main through proximal segmental pulmonary arteries. 2. Lingular 6.4 cm consolidation with hilar and mediastinal lymphadenopathy. Secondary signs strongly favor a component of infection. Differential diagnosis also includes concurrent neoplasm with infiltrative spread. Correlate with laboratory values and clinical symptoms. Recommend repeat CT in 3 months or after the resolution of symptoms to exclude underlying mass. Signed by: Tommie Luo MD on 11/17/2019 2:39 PM
--- NOTE | 2019-11-17 15:15 | NUR ---
received to rm pt aaox3 no distress noted, updated on poc voiced understanding, co pain to left lateral chest medicated in er prior to admission to floor, ivf infusing to r fa 18g no ss of infiltration noted, no other co vocied, oriented to rm call light in reach will continue to monitor
[2019-11-17 15:34] VITALS: BP 145/90
[2019-11-17 15:52] VITALS: BP 145/90
[2019-11-17] MEDS ORDERED: FAMOTIDINE 20 MG TAB PO SCH (16:30)
--- NOTE | 2019-11-17 16:45 | Consultation ---
DATE OF CONSULTATION: Pulmonary Critical Care Consultation CHIEF COMPLAINT: Left-sided pleuritic chest pain and infiltrate on chest x-ray. HISTORY OF PRESENT ILLNESS: The patient is a 69-year-old man. He has a history of some asbestos exposure and prior smoking. He has noted intermittent cough and fevers over a year. He notes some more severe fever for the past 2 days. His temperature was 100.9 at home. He also complains of pain on the left side with deep inspiration. He notes a cough, productive of some blood-tinged phlegm. PAST SURGICAL HISTORY: 1. Status post back surgery. 2. Status post cardiac stent. 3. Status post hip surgery. PAST MEDICAL HISTORY: 1. Coronary artery disease. 2. Gastroesophageal reflux. 3. Asbestos-related lung disease. ALLERGIES: THE PATIENT HAS NO KNOWN DRUG ALLERGIES. FAMILY HISTORY: Family history is noncontributory. REVIEW OF SYSTEMS: The patient is afebrile at home to 100.9. Here, he is afebrile. He has no headache. He has no neck pain. He does not have any chest pain anteriorly. He does have some pain in the lateral thorax on the left side. He is worse with inspiration. He denies any abdominal pain. He has no nausea or vomiting. He has no leg edema. Skin examination shows no rashes. He denies any abdominal pain. He has no nausea or vomiting. He does not complain of leg edema. He denies any focal neurological complaints. He denies any rashes. PHYSICAL EXAMINATION: VITAL SIGNS: The blood pressure is 145/80, saturation is 96%. The pulse is 85. Respiratory rate is 19. HEENT: Shows no facial swelling or erythema. CARDIAC: Reveals regular rate and rhythm with normal S1, S2. LUNGS: Auscultation of lungs reveals decreased breath sounds on the left anteriorly. ABDOMEN: Soft, nontender. There is no rebound or guarding. EXTREMITIES: Show no leg edema or calf tenderness. There is no cyanosis or clubbing. SKIN: Shows no rashes. NEUROLOGIC: Shows no focal abnormalities. LABORATORY DATA: BUN to creatinine ratio is 10 to 0.71. Other electrolytes are within normal limits. White blood cell count is 10.66 and hemoglobin is 12.4. The platelet count is 434. RADIOGRAPHIC DATA: CT scan of the chest shows a lingular consolidation. There is also some pronounced hilar adenopathy on the left side. The patient has some adenopathy at the aortopulmonary window as well. IMPRESSION: 1. Infiltrate and mediastinal adenopathy, representing pneumonia versus malignancy. 2. Coronary artery disease. 3. Prior asbestos exposure. 4. Degenerative arthritis. PLAN: 1. The patient will be on IV antibiotics. 2. He will need a followup CT scan in 6 weeks. The patient does not have radiographic improvement of the infiltrate and adenopathy, he will require a biopsy to rule out malignancy. 3. Await coronavirus testing. 4. Pain control. Nathan Hidalgo MD [facility]/MODL /[id number]
[2019-11-17] MEDS: HYDROMORPHONE 1MG/1ML INJ IV PRN (17:38)
--- NOTE | 2019-11-17 18:20 | Consultation ---
DATE OF CONSULTATION: REASON FOR CONSULTATION: Fever, chills, shortness of breath. HISTORY OF PRESENT ILLNESS: This patient who is a 69-year-old white male, very pleasant, who has history of asbestosis, comes in with shortness of breath for the last two or three weeks, getting progressively worse last few days, feeling feverish. No specific fever. The patient has history of asbestosis, history of smoking, but he quit 10 years ago, comes with above complaint with some cough productive. The patient came to emergency room and since we were in the mid of COVID-19 outbreak, the patient is being to check for COVID-19. The patient is telling me since he came here he is feeling better. He is still having some shortness of breath and some chest discomfort. LABORATORY DATA: Reviewed. Blood cultures, urine cultures still pending. White count of 10.6, hemoglobin 12.4, platelet of 134, lymphocytes 12. His serology of COVID-19 is still pending. His sodium 137, potassium 4.7 with a creatinine 0.7. His BNP was 754. He had a chest CT, which was done and it showed no pulmonary embolus. PHYSICAL EXAMINATION: GENERAL: He is currently alert, oriented, does not seem to be in acute distress. VITAL SIGNS: Stable, afebrile currently. No fever since admission. HEENT: Not icteric. NECK: Supple. CHEST: Few crackles bilateral no the bases. HEART: S1, S2. No S3, S4. No murmurs. ABDOMEN: Soft. Bowel sounds present. No tenderness. EXTREMITIES: No edema. SKIN: No rash. IMAGING DATA: CAT scan showed a 6.4 cm consolidation with hilar mediastinal lymphadenopathy. IMPRESSION: Pneumonia with lymphadenopathy versus malignancy. I will treat the patient with Rocephin and azithromycin, need to follow up on the CT scan and chest x-ray to total resolution. Await COVID-19. We will keep on droplet for now. If came back negative, we can take him off droplet isolation. Further recommendations to follow. MD IVA Doll/CAMMIE /[id number]
[2019-11-17] MEDS ORDERED: DEXTROSE 50% SYRINGE 50 ML IV PRN (18:30)
--- NOTE | 2019-11-17 18:43 | NUR ---
lab drawn as per ordered
[2019-11-17 19:14] LABS: CREATINE KINASE MB 1.5 ng/mL (0-5.0)
[2019-11-17 20:00] VITALS: BP 150/79
[2019-11-17] MEDS: INSULIN LISPRO 100 UNIT/1 ML 3ML VIAL SQ SCH (20:14)
[2019-11-17 20:40] VITALS: BP 150/79
[2019-11-17] MEDS ORDERED: SIMVASTATIN 20 MG TAB PO SCH (21:00)
[2019-11-17] MEDS: LORAZEPAM INJ 2 MG/ML VIAL IV PRN (21:30)
[2019-11-17] MEDS: ENOXAPARIN 30 MG/0.3 ML SYR SC SCH (21:30)
[2019-11-18] VITALS: BP 119/64
[2019-11-18] MEDS: HYDROMORPHONE 1MG/1ML INJ IV PRN ×2 (00:41→08:10)
[2019-11-18 04:39] VITALS: BP 119/69
[2019-11-18] MEDS: LORAZEPAM INJ 2 MG/ML VIAL IV PRN (04:47)
[2019-11-18] MEDS: HYDROCODONE/APAP 10MG-325MG TAB PO PRN ×2 (04:48→09:55)
[2019-11-18 04:49] LABS: BASOPHILS # (AUTO) 0.1 (0.0-0.1); BASOPHILS % 0.7 % (0.0-1.0); EOSINOPHILS # (AUTO) 0.4 (0.0-0.4); EOSINOPHILS % 4.1 % (0.0-6.0); HEMOGLOBIN 11.1 g/dL (14.0-18.0); LYMPHOCYTES # (AUTO) 1.6 (1.0-3.2); LYMPHOCYTES % 15.5 % (18.0-39.1); MEAN CORPUSCULAR HEMOGLOBIN 24.9 pg (28-32); MEAN CORPUSCULAR HGB CONC 30.8 g/dL (31-35); MEAN CORPUSCULAR VOLUME 80.9 fL (81-99); MONOCYTES % 9.9 % (4.4-11.3); NEUTROPHILS # (AUTO) 7.3 (2.1-6.9); NEUTROPHILS % 69.4 % (38.7-80.0); PLATELET COUNT 360 x10e3/uL (140-360); RED BLOOD COUNT 4.45 x10e6/uL (4.3-5.7)
[2019-11-18 05:09] LABS: ALANINE AMINOTRANSFERASE 11 IU/L (0-55); ALBUMIN 2.8 g/dL (3.5-5.0); ALBUMIN/GLOBULIN RATIO 0.6 (0.8-2.0); ALKALINE PHOSPHATASE 62 IU/L (40-150); BLOOD UREA NITROGEN 9 mg/dL (7-26); BUN/CREATININE RATIO 13 (6-25); CALCIUM 9.4 mg/dL (8.4-10.2); CARBON DIOXIDE 29 mmol/L (22-29); CHLORIDE 96 mmol/L (98-107); CREATININE, SERUM 0.71 mg/dL (0.72-1.25); EST GLOMERULAR FILTRATION RATE > 60 ML/MIN (60-); GLUCOSE 82 mg/dL (74-118); SODIUM 134 mmol/L (136-145)
[2019-11-18 05:10] LABS: CREATINE KINASE 55 IU/L (30-200)
[2019-11-18 05:32] LABS: CHOL/HDL RATIO 3.4 (3.9-4.7)
[2019-11-18 05:52] LABS: THYROID STIMULATING HORMONE 0.396 uIU/mL (0.350-4.940)
--- NOTE | 2019-11-18 06:00 | NUR ---
Patient resting, eye closed, resp even and unlabored in bed with call light within reach. No issues or concerns noted. Will continue to monitor.
[2019-11-18 07:29] VITALS: BP 119/73
[2019-11-18] MEDS: INSULIN LISPRO 100 UNIT/1 ML 3ML VIAL SQ SCH ×2 (07:29→13:54)
[2019-11-18] MEDS ORDERED: PANTOPRAZOLE SOD 40 MG TABEC PO SCH (07:30)
[2019-11-18] MEDS: ENOXAPARIN 30 MG/0.3 ML SYR SC SCH (08:11)
[2019-11-18 08:17] VITALS: BP 119/73
[2019-11-18] MEDS ORDERED: METOPROLOL SUCCINATE 50 MG TAB XL PO SCH (09:00)
[2019-11-18] MEDS: CEFTRIAXONE SOD 1 GM/NS 50 ML 50 ML IV SCH (09:57)
[2019-11-18] MEDS: AZITHROMYCIN 500MG/NS 250 ML 250 ML IV SCH (10:56)
[2019-11-18 13:50] VITALS: BP 116/63
[2019-11-18] MEDS ORDERED: VENTOLIN HFA18 GM INH (14:38)
[2019-11-18] MEDS ORDERED: ZITHROMAX500 MG PO (14:38)
[2019-11-18] MEDS ORDERED: CEFDINIR300 MG PO (14:38)
--- NOTE | 2019-11-18 15:19 | Progress Note ---
DATE: SUBJECTIVE: The patient feels much better. He is eager to go home. He was seen by Infectious Disease today. His coronavirus is negative. PHYSICAL EXAMINATION: VITAL SIGNS: The patient is afebrile. The blood pressure is 116/63, and saturation is 98%. HEENT: No facial swelling or erythema. CARDIAC: Regular rate and rhythm with normal S1, S2. LUNGS: Auscultation of lungs shows decreased breath sounds at the bases. There is no wheezing. ABDOMEN: Soft, nontender. There is no rebound or guarding. EXTREMITIES: No leg edema or calf tenderness. LABORATORY DATA: White blood cell count is 10.5 and hemoglobin is 11.1. The platelet count is 360. BUN to creatinine ratio is normal. The other electrolytes are within normal limits. IMPRESSION: 1. Infiltrate and mediastinal adenopathy, possibly representing pneumonia. 2. Prior asbestos exposure. 3. Degenerative arthritis. PLAN: 1. The patient will be discharged home with Levaquin. 2. He will complete a course of oral Levaquin at home. 3. The patient will have a followup CT scan in 6 weeks. 4. If the infiltrate has not improved with antibiotic treatment and time, he will require a biopsy to rule out malignancy. 5. Case discussed with Infectious Disease. MD EDNA Montalvo/CAMMIE /[id number]
--- NOTE | 2019-11-18 15:33 | NUR ---
Patient requested to leave. This lyric writer called Dr. Reyes and asked that he be seen, Dr. Reyes came to see patient and wrote new prescriptions for antibiotics and released him stating to follow up within 3-[address] Hidalgo was called and he came as well. He released patient and stated to follow up within 3-4 weeks and and get a cat scan within [address] Santos, attending doctor, PRECIPITATOR was called as well and released him with antibiotics that Dr. Reyes wrote and the inhaler she wrote, she told me to not continue to other two antibiotics that she wrote. Patient's IV was removed at 1530 and covered with a clean, dry dressing. Patient had no other questions or issues at this time. Patient was brought to his car via wheelchair by [facility].
--- NOTE | 2019-11-18 15:59 | Progress Note ---
DATE: SUBJECTIVE: Mr. Matthew is feeling better. He wants to go home. REVIEW OF SYSTEMS: At the present time HEENT: Negative. PULMONARY: Negative. CARDIAC: Negative. LABORATORY DATA: His blood cultures are negative. Urine cultures are negative so far. His COVID-19 was negative. His white count is 10.49 with hemoglobin 11.1. Sodium 134, potassium 4.0 with creatinine 0.7. His CT scan reviewed with Pulmonary, Dr. Hidalgo. PHYSICAL EXAMINATION: GENERAL: He is currently alert, oriented, does not seem to be in acute distress. VITAL SIGNS: Stable, afebrile. HEENT: Not icteric. NECK: Supple. CHEST: Few rhonchi. COR: S1, S2. No S3, S4, or murmur. ABDOMEN: Soft. Bowel sounds present. No tenderness. EXTREMITIES: No edema. SKIN: There is no rash. IMPRESSION: Pneumonia, community acquired, clinically improving. However, concerned about the finding of the CAT scan. We need to follow up until total resolution. There is a 6.4 cm consolidation with hilar lymphadenopathy. In my opinion, we need to rule out malignancy. Discussed with Dr. Hidalgo. We will treat with the Levaquin for seven more days. Discharged the patient to see me back in 3-4 weeks, we will see him in 3-[address] scan in six weeks, if there is still abnormality to proceed with biopsy. Discussed with the patient at length. MD IVA Doll/CAMMIE /[id number]
--- NOTE | 2019-11-18 23:31 | Discharge Summary ---
ADMISSION DIAGNOSES: Pneumonia, present on admission; hypertension; prediabetes; chronic obstructive pulmonary disease; coronary artery disease; chronic back pain. DISCHARGE DIAGNOSES: Pneumonia, present on admission; hypertension; prediabetes; chronic obstructive pulmonary disease; coronary artery disease; chronic back pain; rule out coronavirus disease 2018. HISTORY: Hypertension, prediabetes, COPD, CAD with PCI x1, chronic back pain, asbestosis. SURGICAL HISTORY: TMA, right total hip replacement, back surgery. FAMILY HISTORY: The patient's brother has diabetes. SOCIAL HISTORY: Noncontributory. HOSPITAL COURSE: A 69-year-old male admits with complaints of chronic intermittent dry cough for 1 year with associated shortness of breath and fever for the last 2 to 3 days. His T-max was 100.9. He has a left-sided chest pain, that only occurs with deep inspiration. On admission, chest x-ray showed no effusion, no pneumothorax, left mid and lower lung zone patchy airspace opacities with a small pleural effusion. CT of the chest showed no PE and a lingular 6.5 cm consolidation with hilar and mediastinal lymphadenopathy. The patient was advised to follow up with repeat CAT scan of the chest in 3 months to exclude mass. Blood cultures were negative. Urine culture was negative. COVID came back negative. Per the patient's request, he is very adamant about discharging today. He will discharge with new prescription for Levaquin and albuterol inhaler per Infectious Disease. The patient understands discharge instructions and agrees to plan. He will follow up with primary care in 1 to 2 weeks, Dr. Reyes be in 3 to 4 weeks, and follow up with the repeat CT of the chest. Vital signs stable, the patient is afebrile. Dictated by Bren Garcia NP MD JOSE Rocha/MODL /[id number]
== END 2019-11-18 15:57 | disposition home or self-care (01) | DRG 194 ==
LOC: ER 09:50 → ERHOLD 11:01 → IMCU 15:05
PROVIDERS: ADMIT Internal Medicine; ATTEND Internal Medicine
DX: J18.9 Pneumonia, unspecified organism (principal); J44.0 Chronic obstructive pulmonary disease with (acute) lower respiratory infection; I10 Essential (primary) hypertension; R73.03 Prediabetes; I25.10 Atherosclerotic heart disease of native coronary artery without angina pectoris; Z95.5 Presence of coronary angioplasty implant and graft; Z11.59 Encounter for screening for other viral diseases; Z77.090 Contact with and (suspected) exposure to asbestos; M19.90 Unspecified osteoarthritis, unspecified site; R59.0 Localized enlarged lymph nodes
CPT/HCPCS: 36415; 71045; 71260; 80053; 80061; 81001; 82306; 82550; 82553; 82948; 83036; 83735; 83880; 83970; 84443; 84484; 85025; 85610; 85730; 87040; 87086; 87635; 93005; 93306; 99284; J0456; J0696; J1170; J1650; J2060; J2270; J2405; J7030; Q9967

== ENCOUNTER → 2019-12-29 | Outpatient (RCR) | payer MEDICARE ==
[~2019-12-29] MED LIST: ANORO ELLIPTA1 EACH; CEFDINIR300 MG PO; HYDROCODON-ACE1 EAC9 PO; LORAZEPAM PO; METFORMIN HCL500 MG; METOPROLOL SUCC50 MG; PANTOPRAZOLE SO40 MG; PROAIR HFA INH8.5 GM; ROSUVASTATIN CAL5 MG; VENTOLIN HFA18 GM INH; ZITHROMAX500 MG PO
== END ==
LOC: OT 12-15 12:17
PROVIDERS: ATTEND Surgery Surgery of the Hand
DX: G56.01 Carpal tunnel syndrome, right upper limb (principal); M79.641 Pain in right hand; M25.641 Stiffness of right hand, not elsewhere classified; M25.631 Stiffness of right wrist, not elsewhere classified; R53.1 Weakness

== ENCOUNTER → 2020-01-29 | Outpatient (RCR) | payer MEDICARE | LOC: OT 12-31 13:58 | PROVIDERS: ATTEND Surgery Surgery of the Hand | DX: G56.01 Carpal tunnel syndrome, right upper limb (principal); M79.641 Pain in right hand; M25.641 Stiffness of right hand, not elsewhere classified; M25.631 Stiffness of right wrist, not elsewhere classified; R53.1 Weakness ==

== ENCOUNTER → 2020-06-30 | Outpatient (CLI) | payer OTHER ==
[~2020-06-30] MED LIST changes: +COVID-19 VACC, MRNA(MODERNA)/PF 100 MCG/0.5 ML VIAL IM ONE
== END ==
LOC: VACCPMC 17:00
DX: Z23 Encounter for immunization (principal); Z20.828 Contact with and (suspected) exposure to other viral communicable diseases

== ENCOUNTER → 2020-08-01 | Outpatient (CLI) | payer OTHER | LOC: VACCPMC 09:19 | DX: Z23 Encounter for immunization (principal); Z20.822 Contact with and (suspected) exposure to COVID-19 ==